=== PATIENT | female | born 1990 | race Caucasian/White ===

== ENCOUNTER 2017-08-26 10:12 | Inpatient (IN) ==
[~2017-08-26 10:12] MED LIST: GI Cocktail 40 ML EACH ONE
[2017-08-26] MEDS ORDERED: Ondansetron 4 MG/2 ML VIAL IVP ONE (10:50)
[2017-08-26] MEDS ORDERED: *HR* HYDROmorphone (PF) 1 MG/ML SYRINGE IVP ONE ×2 (10:50→12:55)
[2017-08-26] MEDS ORDERED: 0.9 % Sodium Chloride 1,000 ML IVC ONE (10:50)
[2017-08-26] MEDS ORDERED: Hyoscyamine 0.5 MG/ML MLS IVP ONE (10:51)
--- NOTE | 2017-08-26 10:54 | Emergency Department Note ---
Disposition Clinical Impression: Abdominal pain, Acute cholecystitis Disposition: Admitted As Inpatient Condition: Fair Time of Disposition: 13:02 Abdominal Pain HPI - General Chief Complaint: ED Abdominal Pain Stated Complaint: abd pain, seen at [facility] yesterday Time Seen by Provider: 08/26/17 10:21 Source: patient Mode of arrival: ambulatory Limitations: no limitations Nursing Notes Reviewed: Yes Vital Signs Reviewed: Yes - History of Present Illness HPI Narrative: 26-year-old female morbidly obese with known gallstones presents for evaluation of abdominal pain. Patient states that she has had worsening abdominal pain over the past 2 days. States she was seen at an outside ED was given pain medicine and was told to follow-up. States she has not been taking any of her pain medicine. States that she felt nauseous with episodes of emesis. Pain is diffuse throughout her abdomen. Patient denies any immediate postprandial component to it as she has not been eating. Patient denies any fevers. Denies any diarrhea or constipation. No vaginal bleeding or discharge. No dysuria or hematuria. No history of kidney stones. Denying any chest pain or shortness of breath. Pain of the abdomen is worse with direct palpation. Patient does state that she is currently being treated by a urinary tract infection on Bactrim. Pain Scale: 10 - Related Data Home Medications Medication Instructions Recorded Confirmed Sertraline [Zoloft] 50 mg PO DAILY 06/17/17 08/26/17 Cholecalciferol (D-3) [Vitamin D] 1,000 unit PO DAILY 08/26/17 08/26/17 Omeprazole [PriLOSEC] 20 mg PO DAILY 08/26/17 08/26/17 Previous Rx's Medication Instructions Recorded HYDROcodone/Acet 5/325 mg [[place] 1 tab PO Q6H #14 tab 08/25/17 5-325 mg] Sulfamethoxazole/Trimeth DS 1 each PO BID #20 tablet 08/25/17 [Bactrim DS] Allergies Allergy/AdvReac Type Severity Reaction Status Date / Time cephalexin [From Keflex] Allergy Swelling Verified 08/26/17 13:04 of Lip/Tongue/Throat egg Allergy Hives Verified 08/26/17 13:03 All systems ED: reviewed and negative except as stated. Constitutional: Reports: as per HPI. Denies: fever Eyes: Reports: as per HPI ENT ED: Reports: as per HPI Cardiovascular: Reports: as per HPI. Denies: chest pain Respiratory: Reports: as per HPI. Denies: dyspnea Gastrointestinal: Reports: as per HPI, abdominal pain, nausea, vomiting. Denies : diarrhea, constipation Genitourinary: Reports: as per HPI Musculoskeletal: Reports: as per HPI Integumentary: Reports: as per HPI Neurological: Reports: as per HPI Psychiatric: Reports: as per HPI Endocrine: Reports: as per HPI Hematological/Lymphatic: Reports: as per HPI Abdominal Pain PMH - Past Medical History Medical history: Reports: seizures, thyroid disease Female Surgical History: Reports: Adenoidectomy, , Tonsillectomy [employer] history: Reports: bilateral tubal ligation Psychiatric history: Reports: anxiety - Social History Smoking status: Current every day smoker Alcohol use: Reports: none Drug use: Reports: none Physical Exam - General Limitations: no limitations General appearance: alert, in distress, obese - Head Head exam: atraumatic, normocephalic, normal inspection - Eye Eye exam: Present: normal appearance, PERRL, EOMI - ENT ENT exam: normal exam, mucous membranes moist - Neck Neck exam: Present: normal inspection - Chest Chest inspection: Present: normal inspection, symmetric chest wall rise - Respiratory Respiratory exam: Present: normal lung sounds bilaterally. Absent: respiratory distress, prolonged expiratory phase - Cardiovascular Cardiovascular exam: Present: regular rate, normal rhythm - Abdominal Exam Abdominal exam: Present: soft, tenderness (Mild to moderate tenderness throughout. Voluntary guarding), normal bowel sounds. Absent: rebound - Extremities Exam Extremities exam: Present: normal inspection. Absent: pedal edema - Back Exam Back exam: Present: normal inspection - Neurological Exam Neurological exam: Present: alert, oriented X3 - Skin Skin exam: Present: warm, dry, intact, normal color Course Course Narrative: Patient seen and examined. Patient ambulatory the treatment area. Patient appears to be in moderate discomfort. Patient does have tender abdomen. The patient will get basic lab work including appropriate pain control and antiemetics. Patient ultimately require CT of the abdomen and pelvis. Disposition pending. - Reevaluation(s) Reevaluation #1: Patient had a bedside ultrasound performed which shows mobile gallstones with a distended GB. patients pain was improved after the IV pain medication. Time: 11:41 Reevaluation #2: Patient's updated on plan of care. Patient aware that she is going to be admitted. Time: 13:08 - Consultations Consultation #1: Soke with Dr. Rock who accepted the patient on the surgical service. Recommend to start Levaquin and Flagyl. May start clear diet. Time: 13:00 Vital Signs Temperature 98.1 F 08/26/17 10:33 Pulse Rate 88 08/26/17 10:33 Respiratory Rate 16 08/26/17 10:33 Blood Pressure 155/85 08/26/17 10:33 O2 Sat by Pulse Oximetry 100 08/26/17 10:33 Temperature 97.1 F L 08/26/17 13:51 Pulse Rate 106 08/26/17 13:51 Respiratory Rate 18 08/26/17 13:51 Blood Pressure 139/88 08/26/17 13:51 O2 Sat by Pulse Oximetry 99 08/26/17 13:51 Oxygen Delivery Oxygen Delivery Room Air Abdominal Pain - MDM Narrative Medical decision making narrative: 26-year-old morbidly obese female persists for evaluation of abdominal pain. Patient did have mild to moderate tenderness with palpation. Patient had a nonsurgical abdomen. Patient was seen at an outside ED yesterday. Patient was treated symptomatically. Patient does have known gallstones. Patient had a CT the abdomen and pelvis. Patient also had basic lab work including electrolytes and lipase. Patient's lipase is negative. Patient has no elevation in hepatic liver function. Patient did have a bedside ultrasound which showed distended GB with multiple Gall stones. Patient does have several mobile gallstones. Patient's CT scan shows signs consistent with acute cholecystitis. Patient's pain was controlled in the emergency department. Dr. Rock accepted the patient to his service. - Lab Data Lab results reviewed: Yes I reviewed the patient's lab results. Result diagrams: 08/26/17 11:06 08/26/17 11:06 Lab Results 08/26/17 08/26/17 08/26/17 Range/Units 11:06 11:06 11:06 WBC 12.8 H (4.3-11.1) K/mcL RBC 5.07 H (3.82-4.97) M/mcL Hgb 13.3 (11.5-15.4) g/dL Hct 42.2 (35.3-44.9) % MCV 83.2 (83.0-100.0) fL MCH 26.2 L (28.0-33.3) pg MCHC 31.5 L (31.6-35.5) g/dL RDW 14.6 H (11.5-14.5) % Plt Count 263 (140-400) K/mcL MPV 10.6 (9.4-12.4) fL Immature Gran % 0.5 (0-4) % Seg Neutrophils % 78.0 % Lymphocytes % 14.9 % Monocytes % 5.1 % Eosinophils % 1.2 % Basophils % 0.3 % Neutrophils # 10.0 H (1.6-8.9) K/mcL Lymphocytes # 1.9 (0.6-4.6) K/mcL Monocytes # 0.7 (0.0-1.3) K/mcL Eosinophils # 0.2 (0.0-0.6) K/mcL Basophils # 0.0 (0.0-0.2) K/mcL Sodium 136 (136-145) mEq/L Potassium 4.4 (3.5-5.1) mEq/L Chloride 106 (98-107) mEq/L Carbon Dioxide 25 (23-29) mEq/L BUN 13 (6-20) mg/dL Creatinine 0.66 (0.60-1.20) mg/dL Est GFR ( Amer) > 60 (> 60) Est GFR (Non-Af Amer) > 60 (> 60) BUN/Creatinine Ratio 20 (6-26) Glucose 99 (70-105) mg/dL Calculated Osmolality 282 (280-300) Lactic Acid 1.1 (0.5-2.2) mmol/L Calcium 9.1 (8.6-10.3) mg/dL Total Bilirubin 0.4 (0.3-1.0) mg/dL Direct Bilirubin 0.0 (0.0-0.2) mg/dL Indirect Bilirubin 0.4 (0.0-1.2) mg/dL AST 16 (13-39) Units/L ALT 26 (7-52) Units/L Alkaline Phosphatase 80 (34-104) Units/L Serum Total Protein 7.1 (6.4-8.9) g/dL Albumin 4.1 (3.5-5.7) g/dL Globulin 3.0 (2.4-3.5) g/dL Albumin/Globulin Ratio 1.4 (1.1-2.2) Lipase 11 (11-82) Units/L Urine Color (Yellow) Urine Clarity (Clear) Urine pH (5.0-8.0) pH Units Ur Specific [place] (1.010-1.025) Urine Protein (Neg-Trace) mg/dL Urine Glucose (UA) (Normal) mg/dL Urine Ketones (Negative) mg/dL Urine Blood (Negative) Urine Nitrite (Negative) Urine Bilirubin (Negative) Urine Urobilinogen (Normal) mg/dL Ur Leukocyte Esterase (Negative) Urine Microscopic RBC (0-3) per hpf Urine Microscopic WBC (0-3) per hpf Ur Squamous Epith Cells (None-Few) per lpf Urine Bacteria (None-Few) per hpf Hyaline Casts (None-Few) per lpf Ur Culture Indicated? (NO) Urine Test (Negative) 08/26/17 08/26/17 Range/Units 11:28 11:28 WBC (4.3-11.1) K/mcL RBC (3.82-4.97) M/mcL Hgb (11.5-15.4) g/dL Hct (35.3-44.9) % MCV (83.0-100.0) fL MCH (28.0-33.3) pg MCHC (31.6-35.5) g/dL RDW (11.5-14.5) % Plt Count (140-400) K/mcL MPV (9.4-12.4) fL Immature Gran % (0-4) % Seg Neutrophils % % Lymphocytes % % Monocytes % % Eosinophils % % Basophils % % Neutrophils # (1.6-8.9) K/mcL Lymphocytes # (0.6-4.6) K/mcL Monocytes # (0.0-1.3) K/mcL Eosinophils # (0.0-0.6) K/mcL Basophils # (0.0-0.2) K/mcL Sodium (136-145) mEq/L Potassium (3.5-5.1) mEq/L Chloride (98-107) mEq/L Carbon Dioxide (23-29) mEq/L BUN (6-20) mg/dL Creatinine (0.60-1.20) mg/dL Est GFR ( Amer) (> 60) Est GFR (Non-Af Amer) (> 60) BUN/Creatinine Ratio (6-26) Glucose (70-105) mg/dL Calculated Osmolality (280-300) Lactic Acid (0.5-2.2) mmol/L Calcium (8.6-10.3) mg/dL Total Bilirubin (0.3-1.0) mg/dL Direct Bilirubin (0.0-0.2) mg/dL Indirect Bilirubin (0.0-1.2) mg/dL AST (13-39) Units/L ALT (7-52) Units/L Alkaline Phosphatase (34-104) Units/L Serum Total Protein (6.4-8.9) g/dL Albumin (3.5-5.7) g/dL Globulin (2.4-3.5) g/dL Albumin/Globulin Ratio (1.1-2.2) Lipase (11-82) Units/L Urine Color Dark Yellow (Yellow) Urine Clarity Clear (Clear) Urine pH 6.0 (5.0-8.0) pH Units Ur Specific [place] > 1.030 H (1.010-1.025) Urine Protein Negative (Neg-Trace) mg/dL Urine Glucose (UA) Normal (Normal) mg/dL Urine Ketones Negative (Negative) mg/dL Urine Blood Negative (Negative) Urine Nitrite Negative (Negative) Urine Bilirubin Negative (Negative) Urine Urobilinogen Normal (Normal) mg/dL Ur Leukocyte Esterase Small H (Negative) Urine Microscopic RBC 0-3 (0-3) per hpf Urine Microscopic WBC 15-30 H (0-3) per hpf Ur Squamous Epith Cells Many H (None-Few) per lpf Urine Bacteria Few (None-Few) per hpf Hyaline Casts Few (None-Few) per lpf Ur Culture Indicated? NO (NO) Urine Test Negative (Negative) - Radiology Data Radiology results reviewed: Yes I reviewed the patient's radiology results. Abdomen/Pelvis CT 08/26/17 10:50 IMPRESSION: Gallbladder is distended and contains multiple gallstones. Several gallstones appear to be present within the region of the gallbladder neck. Study is limited without IV contrast, however, there does appear to be gallbladder wall thickening and pericholecystic fatty stranding concerning for cholecystitis. Further evaluation with right upper quadrant ultrasound is now recommended. This would allow for better evaluation of the gallbladder and common bile duct. Consider surgical consultation. Umbilical hernia contains fat. Surgical clips are present within the right pelvis. The left fallopian tube clip appears to have migrated into the right pelvis. D/ / Gopal Nunes MD / Gopal Nunes MD Interpreting Provider: Gopal Nunes MD Dennis - Dennis Situation: Demographics Background: Presenting Complaint Assessment: Vital Signs, Course and respsone to treatment, Patient/Family Expectation Recommendation: Barrier(s) to disposition, Recommendation based on pending studies, treatments, or consults Dennis Report Given to: Dr. Pranav Collins Repor Time: 13:00 Attestation Statement - Attestation Attestation: I examined this patient and my medical decision-making was reviewed with the Resident Physician. I agree with the documented findings, disposition and treatment plan as described except to the extent set forth below. Patient presents with abdominal pain. She admits that it is in the right upper quadrant. Started yesterday and she was actually seen yesterday at [place] emergency department. She had labs which were normal. She is diagnosed urinary tract infection and sent home. There is concern today about worsening pain and thus a CT scan was ordered. There is fat stranding around the gallbladder with concern for CT findings of acute cholecystitis. We are not able to get an ultrasound of the gallbladder without surgical services approval. Given the isolated nature of her pain to the right upper quadrant and CT findings of acute cholecystitis we did consult general surgery who proceeded with admission. I do have reduced suspicion for acute cholecystitis given normal transaminases as well as bilirubin however in the setting of leukocytosis this needs to be ruled out. She will need an ultrasound to formally rule out acute cholecystitis. Additionally she will need isolation of other possible causes of abdominal pain
[2017-08-26 11:16] LABS: Basophils % 0.3 %; Eosinophils # 0.2 K/mcL (0.0-0.6); Eosinophils % 1.2 %; Hematocrit 42.2 % (35.3-44.9); Hemoglobin 13.3 g/dL (11.5-15.4); Immature Granulocytes % 0.5 % (0-4); Lymphocytes # 1.9 K/mcL (0.6-4.6); Lymphocytes % 14.9 %; Mean Corpuscular HGB Conc 31.5 g/dL (31.6-35.5); Mean Corpuscular Hemoglobin 26.2 pg (28.0-33.3); Mean Corpuscular Volume 83.2 fL (83.0-100.0); Mean Platelet Volume 10.6 fL (9.4-12.4); Monocytes # 0.7 K/mcL (0.0-1.3); Monocytes % 5.1 %; Platelet Count 263 K/mcL (140-400); Red Blood Count 5.07 M/mcL (3.82-4.97); Red Cell Distribution Width 14.6 % (11.5-14.5)
[2017-08-26 11:31] LABS: Alanine Aminotransferase 26 Units/L (7-52); Albumin 4.1 g/dL (3.5-5.7); Albumin/Globulin Ratio 1.4 (1.1-2.2); Alkaline Phosphatase 80 Units/L (34-104); Aspartate Amino Transferase 16 Units/L (13-39); BUN/Creatinine Ratio 20 (6-26); Bilirubin,Indirect 0.4 mg/dL (0.0-1.2); Bilirubin,Total 0.4 mg/dL (0.3-1.0); Blood Urea Nitrogen 13 mg/dL (6-20); Calcium 9.1 mg/dL (8.6-10.3); Carbon Dioxide 25 mEq/L (23-29); Chloride 106 mEq/L (98-107); Glucose 99 mg/dL (70-105); Lipase 11 Units/L (11-82); Osmolality,Calculated 282 (280-300); Potassium 4.4 mEq/L (3.5-5.1); Sodium 136 mEq/L (136-145); Total Protein 7.1 g/dL (6.4-8.9); eGFR For African Americans > 60 (> 60); eGFR For Non-African Americans > 60 (> 60)
[2017-08-26 11:41] LABS: Bilirubin,Urine Negative (Negative); Blood,Urine Negative (Negative); Clarity,Urine Clear (Clear); Color,Urine Dark Yellow (Yellow); Glucose,Urine (UA) Normal (Normal); Ketones,Urine Negative (Negative); Leukocyte Esterase,Urine Small (Negative); Nitrite,Urine Negative (Negative); Protein,Urine Negative (Neg-Trace); Specific Gravity,Urine > 1.030 (1.010-1.025); Urobilinogen,Urine Normal (Normal)
[2017-08-26 11:43] LABS: Bacteria,Urine Few per hpf (None-Few); Hyaline Casts,Urine Few per lpf (None-Few); RBC,Urine 0-3 per hpf (0-3); Squamous Epithelial Cell,Urine Many per lpf (None-Few); WBC,Urine 15-30 per hpf (0-3)
[2017-08-26] MEDS ORDERED: Levofloxacin 750 MG/150 ML 750 MG/150 ML BAG IVPB ONE (13:05)
[2017-08-26] MEDS ORDERED: MetroNIDAZOLE 500 MG/100 ML 500 MG/100 ML BAG IVPB ONE (13:05)
[2017-08-26 13:52] LABS: INR 1.1; Prothrombin Time 11.4 Seconds (9.4-12.1)
[2017-08-26 13:54] LABS: Activated Partial Thrombo Time 32.5 Seconds (26.0-36.0)
[2017-08-26] MEDS ORDERED: Ondansetron 4 MG/2 ML VIAL IVP PRN (14:35)
[2017-08-26] MEDS ORDERED: Ketorolac 30 MG/ML VIAL IVP PRN (14:36)
[2017-08-26] MEDS: MetroNIDAZOLE 500 MG/100 ML 500 MG/100 ML BAG IVPB SCH (15:42)
[2017-08-26] MEDS: Nicotine 7 MG PATCH.TD24 TD SCH (15:42)
[2017-08-26] MEDS: 0.9 % Sodium Chloride 1,000 ML IVC SCH (15:42)
[2017-08-26] MEDS: *HR* HYDROmorphone (PF) 1 MG/ML SYRINGE IVP PRN ×3 (15:43→21:28)
--- NOTE | 2017-08-26 15:48 | General Surg History&Physical ---
Date of Encounter: 08/27/17 Time of Encounter: 15:46 Assessment and Plan (1) Left upper quadrant abdominal pain of unknown etiology Current Visit: Yes Status: Acute The assessment and plan as outlined above was discussed with the patient and/or family members who expressed understanding and agreement. All questions were answered. Spleen to the patient that I personally evaluated the CAT scan images and report. CT scan imaging report is mainly based upon what the suggested location of the patient's pain was which is why they focused on the questionable or possible pericholecystic fluid and possible fat stranding. The patient denies any right upper quadrant pain and is very tender left upper quadrant. There was no abnormality that I have seen by CT scan to find the cause of her abdominal pain. She does have gallstones present but the CAT scan is done without contrast to determine any other abnormality is noted to be performed. Additionally, the patient does not have any symptoms in that location. A formal gallbladder ultrasound can be considered but I think will be most appropriate to consider an EGD. I will write for Ananya to see if this will help some of her abdominal pain symptoms and we will consider an EGD within the next 24 hours. (2) UTI (urinary tract infection) Current Visit: Yes Status: Acute The assessment and plan as outlined above was discussed with the patient and/or family members who expressed understanding and agreement. All questions were answered. Noted by josiah. On Jesu. Qualifiers: Urinary tract infection type: site unspecified Hematuria presence: without hematuria Qualified Code(s): N39.0 - Urinary tract infection, site not specified History of Present Illness Chief complaint: Upper abdominal pain HPI: Ms. Muñoz is a 26 year old female past medical history significant for seizures states that she has been having left-sided abdominal pain with the past 2 months. Spontaneously abdominal pain is located she points the left upper quadrant near her left costal margin. She will he reported to me that her pain was in the right upper quadrant area but the patient denies having any right upper quadrant pain. He specifically denies any nausea or vomiting symptoms and states that the pain is a constant "squeezing" pain symptoms. I re-stated and asked several times for the patient to pinpoint and localize were pain symptoms and each time she pointed to the left upper quadrant and sometimes describe some mild discomfort to the left of the epigastric region. She denies ever having had an endoscopy procedure before. She had a CT scan of the abdomen and pelvis and also had an ultrasound performed by the emergency room resident concerning for thickening of the gallbladder and gallstones. Past Med Surg Social Fam HX - Past Medical History Medical history: seizures, thyroid disease Psychiatric history: anxiety - Past Surgical History Surgical History: , other - Social History Smoking Status: Current every day smoker Packs per day: 1 Smokeless Tobacco Status: No Alcohol use: none Drug use: none Medications and Allergies Sertraline [Zoloft] 50 mg PO DAILY 06/17/17 [History] HYDROcodone/Acet 5/325 mg [[place] 5-325 mg] 1 tab PO Q6H #14 tab 08/25/17 [Rx] Sulfamethoxazole/Trimeth DS [Bactrim DS] 1 each PO BID #20 tablet 08/25/17 [Rx] Cholecalciferol (D-3) [Vitamin D] 1,000 unit PO DAILY 08/26/17 [History] Omeprazole [PriLOSEC] 20 mg PO DAILY 08/26/17 [History] 3 Allergy/AdvReac Type Severity Reaction Status Date / Time cephalexin [From Keflex] Allergy Swelling Verified 08/26/17 13:04 of Lip/Tongue/Throat egg Allergy Hives Verified 08/26/17 13:03 Review of Systems All systems PM: reviewed and no additional remarkable complaints except as stated All systems PM: A 10-system review of systems was performed and is negative for pertinent findings except as documented above in the HPI. General Surgery Exam Initial Vital Signs Temp Pulse Resp BP Pulse Ox 98.1 F 88 16 155/85 100 08/26/17 10:33 08/26/17 10:33 08/26/17 10:33 08/26/17 10:33 08/26/17 10:33 - Eyes PERRL, normal ocular movement - Respiratory normal expansion, normal respiratory effort - Cardiovascular Cardiovascular exam: Present: RRR, no murmurs/rubs/gallops - Abdomen Abdomen general surgery: Present: bowel sounds present, soft (Obese), tender ( Pain mainly in the LUQ to mild palpation. Mild epigastric pain. No RUQ pain present. No masses. No hernias noted.) - Musculoskeletal Present: other (No clubbing, cyanosis, or edema) Results - Labs 08/27/17 09:10 08/27/17 09:10 Abnormal lab results WBC 12.8 K/mcL (4.3-11.1) H 08/26/17 11:06 RBC 5.07 M/mcL (3.82-4.97) H 08/26/17 11:06 MCH 26.2 pg (28.0-33.3) L 08/26/17 11:06 MCHC 31.5 g/dL (31.6-35.5) L 08/26/17 11:06 RDW 14.6 % (11.5-14.5) H 08/26/17 11:06 Neutrophils # 10.0 K/mcL (1.6-8.9) H 08/26/17 11:06 Ur Specific [place] > 1.030 (1.010-1.025) H 08/26/17 11:28 Ur Leukocyte Esterase Small (Negative) H 08/26/17 11:28 Urine Microscopic WBC 15-30 per hpf (0-3) H 08/26/17 11:28 Ur Squamous Epith Cells Many per lpf (None-Few) H 08/26/17 11:28 All other labs normal. - Imaging CT scan - abdomen: report reviewed, image reviewed (Images and report reviewed by me. There is a question of mild fat stranding around the gallbladder and perhaps. Cholecystic fluid and gallstones with CAT scan is done without contrast.)
[2017-08-26] MEDS: *HR* Heparin 5,000 UNIT/ML VIAL SQ SCH (16:35)
[2017-08-26] MEDS: Sucralfate 1 GM TABLET PO SCH ×2 (16:36→21:10)
[2017-08-27] MEDS: MetroNIDAZOLE 500 MG/100 ML 500 MG/100 ML BAG IVPB SCH ×4 (00:05→23:10)
[2017-08-27] MEDS: *HR* HYDROmorphone (PF) 1 MG/ML SYRINGE IVP PRN ×7 (00:05→23:05)
[2017-08-27] MEDS: *HR* Heparin 5,000 UNIT/ML VIAL SQ SCH ×2 (05:39→17:48)
[2017-08-27] MEDS: 0.9 % Sodium Chloride 1,000 ML IVC SCH (08:17)
[2017-08-27] MEDS: Nicotine 7 MG PATCH.TD24 TD SCH (08:19)
[2017-08-27] MEDS ORDERED: Levofloxacin 500 MG/100 ML 500 MG/100 ML BAG IVPB SCH (09:00)
[2017-08-27] MEDS ORDERED: Pantoprazole 40 MG VIAL IVP SCH (09:00)
[2017-08-27] MEDS ORDERED: Cholecalciferol (D-3) 1,000 UNIT TABLET PO SCH (09:00)
[2017-08-27 09:19] LABS: Basophils % 0.2 %; Eosinophils # 0.3 K/mcL (0.0-0.6); Eosinophils % 2.4 %; Hematocrit 38.9 % (35.3-44.9); Hemoglobin 12.1 g/dL (11.5-15.4); Immature Granulocytes % 0.7 % (0-4); Lymphocytes # 2.1 K/mcL (0.6-4.6); Lymphocytes % 19.2 %; Mean Corpuscular HGB Conc 31.1 g/dL (31.6-35.5); Mean Corpuscular Hemoglobin 26.2 pg (28.0-33.3); Mean Corpuscular Volume 84.2 fL (83.0-100.0); Mean Platelet Volume 10.3 fL (9.4-12.4); Monocytes # 0.8 K/mcL (0.0-1.3); Monocytes % 7.3 %; Neutrophils # 7.7 K/mcL (1.6-8.9); Platelet Count 229 K/mcL (140-400); Red Blood Count 4.62 M/mcL (3.82-4.97); Red Cell Distribution Width 14.6 % (11.5-14.5); Segmented Neutrophils % 70.2 %
--- NOTE | 2017-08-27 09:24 | General Surgery Progress Note ---
<Gaviota Barber - Last Filed: 08/27/17 10:12> Date of Encounter: 08/27/17 Time of Encounter: 08:50 - Assessment and Plan (1) Abdominal pain Current Visit: Yes Status: Acute Positive [place] sign. Patient also tender on the left side with palpation. Again she states that her discomfort is on the right but when asked to point to the area she points to the left. She is noted to be febrile. Tmax 100F at 11: 46 PM 08/26/2017. Her white blood cell count has normalized (10.9), LFTs, lipase, and bili are normal. Plan: NPO Upper Abd US today EGD today (recommendations, risks, and benefits reviewed with the patient. She is agreeable to proceed. Signed consent is on the hard chart) further recommendations pending. Qualifiers: Abdominal location: upper abdomen, unspecified Qualified Code(s): R10.10 - Upper abdominal pain, unspecified (2) UTI (urinary tract infection) Current Visit: Yes Status: Acute Management per primary medicine. Noted Levaquin infusion. Qualifiers: Urinary tract infection type: site unspecified Hematuria presence: without hematuria Qualified Code(s): N39.0 - Urinary tract infection, site not specified Subjective Patient reports: still having pain, pain is less, voiding w/o difficulty, no flatus, no bowel movement, nausea, fever Narrative: Jenifer reports upper abdominal pain. She states the pain is on her right side but when asked to point to the location, she points to the left. She states the pain is different than yesterday that it is more localized to the right side. She reports mild nausea associated. She reports fevers yesterday. She denies vomiting, diarrhea, constipation, or feelings of heartburn. Objective Vital Signs - Last 8 Hours Temp Pulse Resp BP Pulse Ox 08/27/17 05:13 98.7 F 114 14 115/69 95 Intake and Output 08/26/17 08/27/17 08/27/17 23:59 07:59 15:59 Intake Total 1060 / 1060 1100 / 1100 Output Total 0 / 0 0 / 0 Balance 1060 / 1060 1100 / 1100 Intake: IV Fluids 100 / 100 1100 / 1100 0.9 % Sodium Chloride 1,000 ML 1000 / 1000 @ 80 mls/hr IVC .[id number] [facility]AL Rx #:[id number] Flagyl Premix 500 MG/100 ML 500 100 / 100 100 / 100 mg In 100 ml @ 100 mls/hr IVPB Q8HR GAL Rx#:[id number] Oral 960 / 960 0 / 0 Output: Urine 0 / 0 0 / 0 Other: Meal Dinner NPO # Bowel Movements 0 Blood Glucose* 104 - General physical appearance no distress, no pain, obese - Eyes normal ocular movement - ENT atraumatic, normocephalic - Neck Neck exam: trachea midline, no venous distension - Respiratory normal respiratory effort, clear to auscultation - Cardiovascular Cardiovascular exam: Present: RRR, distant heart sounds - Abdomen Abdomen: Present: bowel sounds present, soft, tender Abdominal Tenderness: RUQ (+ [place] sign), LUQ Hernia: none - Integumentary no growths - Neurologic normal coordination, normal sensation - Musculoskeletal normal posture - Psychiatric oriented to time, oriented to person, oriented to place, speech is normal, memory intact - Labs 08/27/17 09:10 08/27/17 09:10 Consult Discharge Plan - Plan Referrals: Monico Guzmán, [employer] [Primary Care Provider] - <Amos Rock - Last Filed: 08/28/17 14:42> Date of Encounter: 08/27/17 - Assessment and Plan (1) Left upper quadrant abdominal pain of unknown etiology Current Visit: Yes Status: Acute (2) UTI (urinary tract infection) Current Visit: Yes Status: Acute Qualifiers: Urinary tract infection type: site unspecified Hematuria presence: without hematuria Qualified Code(s): N39.0 - Urinary tract infection, site not specified Objective Vital Signs - Last 8 Hours Temp Pulse Resp BP Pulse Ox 08/28/17 10:18 99.2 F 97 14 100/63 94 08/28/17 08:17 94 08/28/17 06:49 97.4 F L 91 14 99/51 96 Intake and Output 08/27/17 08/28/17 08/28/17 23:59 07:59 15:59 Intake Total 460 / 460 0 / 0 0 / 0 Output Total 800 / 800 0 / 0 500 / 500 Balance -340 / -340 0 / 0 -500 / -500 Intake: IV Fluids 100 / 100 Flagyl Premix 500 MG/100 ML 500 100 / 100 mg In 100 ml @ 100 mls/hr IVPB Q8HR GAL Rx#:[id number] Oral 360 / 360 0 / 0 0 / 0 Output: Urine 800 / 800 0 / 0 500 / 500 Other: Meal Clears NPO Percent of Meal Consumed 0% Weight 147.148 kg Blood Glucose* 82 Patient Weight 08/28/17 23:59 Weight 147.148 kg - Labs 08/27/17 09:10 08/27/17 09:10 - Attending Attestation I have personally performed a face to face evaluation on this patient. I have reviewed and agree with the care plan. History and Exam by me shows: I reviewed the above assessment and evaluation and agree with the above plan. For EGD today. To consider add-on Lap CCY for 08/28/17.
[2017-08-27 09:34] LABS: Alanine Aminotransferase 21 Units/L (7-52); Albumin 3.5 g/dL (3.5-5.7); Albumin/Globulin Ratio 1.3 (1.1-2.2); Alkaline Phosphatase 70 Units/L (34-104); Aspartate Amino Transferase 13 Units/L (13-39); BUN/Creatinine Ratio 12 (6-26); Bilirubin,Direct 0.2 mg/dL (0.0-0.2); Bilirubin,Indirect 0.7 mg/dL (0.0-1.2); Bilirubin,Total 0.9 mg/dL (0.3-1.0); Blood Urea Nitrogen 7 mg/dL (6-20); Calcium 8.8 mg/dL (8.6-10.3); Carbon Dioxide 26 mEq/L (23-29); Chloride 108 mEq/L (98-107); Globulin 2.7 g/dL (2.4-3.5); Glucose 97 mg/dL (70-105); Osmolality,Calculated 282 (280-300); Potassium 4.2 mEq/L (3.5-5.1); Sodium 137 mEq/L (136-145); Total Protein 6.2 g/dL (6.4-8.9); eGFR For African Americans > 60 (> 60); eGFR For Non-African Americans > 60 (> 60)
[2017-08-27] MEDS: Sucralfate 1 GM TABLET PO SCH ×4 (10:27→21:31)
[2017-08-27] MEDS ORDERED: *HR* FentaNYL (PF) 100 MCG/2 ML VIAL ONE ×2 (14:43→14:57)
[2017-08-27] MEDS: *HR* Midazolam HCl 5 MG/5 ML VIAL IVP ONE ×2 (14:54→14:56)
[2017-08-27] MEDS ORDERED: *HR* Midazolam HCl 5 MG/5 ML VIAL IVP ONE (14:57)
--- NOTE | 2017-08-27 15:13 | Pre-Sedation Evaluation ---
Pre-sedation evaluation - Pre-sedation checklist Recent Vitals: Last Vital Signs Temp 98.8 F 08/27/17 14:28 Pulse 125 08/27/17 15:08 Resp 12 08/27/17 15:08 BP 90/56 08/27/17 15:08 Pulse Ox 98 08/27/17 15:08 Airway Assessment: Patient can open mouth completely, TMJ function normal Possible difficult airway: No ASA Classification *see protocol: CLASS III-Severe systemic disease Plan of Care: Pt appropriate candidate for procedure/moderate/conscious sedation
[2017-08-27] MEDS ORDERED: Ondansetron 4 MG/2 ML VIAL IVP PRN (15:55)
[2017-08-28] MEDS: *HR* HYDROmorphone (PF) 1 MG/ML SYRINGE IVP PRN ×6 (03:21→22:18)
[2017-08-28] MEDS: 0.9 % Sodium Chloride 1,000 ML IVC SCH ×2 (05:37→06:49)
[2017-08-28] MEDS: *HR* Heparin 5,000 UNIT/ML VIAL SQ SCH (05:38)
[2017-08-28] MEDS: Sucralfate 1 GM TABLET PO SCH ×3 (05:40→20:07)
[2017-08-28] MEDS ORDERED: Pantoprazole 40 MG VIAL IVP SCH (09:00)
[2017-08-28] MEDS ORDERED: Nicotine 7 MG PATCH.TD24 TD SCH (09:00)
[2017-08-28] MEDS ORDERED: Cholecalciferol (D-3) 1,000 UNIT TABLET PO SCH (09:00)
[2017-08-28] MEDS ORDERED: Levofloxacin 500 MG/100 ML 500 MG/100 ML BAG IVPB SCH (09:00)
[2017-08-28] MEDS: MetroNIDAZOLE 500 MG/100 ML 500 MG/100 ML BAG IVPB SCH (09:11)
--- NOTE | 2017-08-28 14:02 | Anesthesia Evaluation PreOp ---
Date of Encounter: 08/28/17 Time of Encounter: 14:00 - Past History Planned Operation: Lap cholecystectomy Cardiac History: Denies any Significant Hx Pulmonary History: Smoker CHORUS DANCER History: Denies Any Significant HX Other Medical History: GERD (poorly controlled), Other (BMI 45) Anesthesia History: No Prior Anesthetic Complications, Past Anesthesia (T&A, C- S and tubal under spinal) Alcohol Use: none Drug use: none Medications and Allergies Sertraline [Zoloft] 50 mg PO DAILY 06/17/17 [History] HYDROcodone/Acet 5/325 mg [[place] 5-325 mg] 1 tab PO Q6H #14 tab 08/25/17 [Rx] Sulfamethoxazole/Trimeth DS [Bactrim DS] 1 each PO BID #20 tablet 08/25/17 [Rx] Cholecalciferol (D-3) [Vitamin D] 1,000 unit PO DAILY 08/26/17 [History] Omeprazole [PriLOSEC] 20 mg PO DAILY 08/26/17 [History] 3 Allergy/AdvReac Type Severity Reaction Status Date / Time cephalexin [From Keflex] Allergy Swelling Verified 08/26/17 13:04 of Lip/Tongue/Throat egg Allergy Hives Verified 08/26/17 13:03 - Meds/Allergy Pre-op Review Medications Reviewed: Yes Allergies Reviewed: Yes Beta Blockers on Current Med List: No Anesthesia Results - Labs 08/27/17 09:10 08/27/17 09:10 Anesthesia Exam Last Vital Signs Temp 99.2 F 08/28/17 10:18 Pulse 97 08/28/17 10:18 Resp 14 08/28/17 10:18 BP 100/63 08/28/17 10:18 Pulse Ox 94 08/28/17 10:18 Weight: 147 kg NPO (# of Hours): > 8 hrs - HEENT Pupil (Motor): Pupils equal, EOMI Mallampati: III Teeth: Normal Oral Opening: Greater than 3 - CHORUS DANCER LOC: Oriented CHORUS DANCER Motor: Normal RUE, Normal LUE, Normal RLE, Normal LLE, Normal Face - Cardiac Rhythm: Regular Murmur: None - Pulmonary Breath Sounds: bilateral Clear Respiratory Effort: Symmetrical Anesthesia Assess/Plan ASA Score: 3 Modified [place] Scale for Level of Consciousness: Cooperative, oriented, and tranquil Anesthetic Plan: General Monitoring Plan: Standard Monitors Recovery Plan: PACU
[2017-08-28] MEDS ORDERED: *HR* Rocuronium Bromide 50 MG/5 ML VIAL ONE ×2 (14:07→16:31)
[2017-08-28] MEDS ORDERED: Neostigmine Methylsulfate 3 MG/3 ML SYRINGE ONE (14:07)
[2017-08-28] MEDS ORDERED: Dexamethasone 4 MG/ML VIAL ONE (14:07)
[2017-08-28] MEDS ORDERED: Lidocaine -MPF 2% 2 ML VIAL ONE (14:07)
[2017-08-28] MEDS ORDERED: *HR* Succinylcholine 200 MG/10 ML VIAL IVP ONE ×2 (14:07→14:19)
[2017-08-28] MEDS ORDERED: Lidocaine -MPF 4% 5 ML AMPUL ONE (14:07)
[2017-08-28] MEDS ORDERED: *HR* FentaNYL (PF) 100 MCG/2 ML VIAL ONE ×2 (14:07→16:02)
[2017-08-28] MEDS ORDERED: *HR* Midazolam HCl 2 MG/2 ML VIAL ONE (14:07)
[2017-08-28] MEDS ORDERED: Ondansetron 4 MG/2 ML VIAL ONE (14:07)
[2017-08-28] MEDS ORDERED: *HR* Propofol 200 MG/20 ML VIAL IVP ONE ×2 (14:08→14:57)
[2017-08-28] MEDS ORDERED: *HR* Etomidate 40 MG/20 ML VIAL IVP ONE (14:12)
[2017-08-28] MEDS ORDERED: *HR* Phenylephrine 10 MG/ML VIAL ONE (14:43)
[2017-08-28] MEDS ORDERED: *HR* HYDROmorphone 2 MG/ML SYRINGE ONE ×2 (15:16→16:05)
[2017-08-28] MEDS ORDERED: *HR* Promethazine 25 MG/ML VIAL IVP PRN (15:18)
[2017-08-28] MEDS ORDERED: *HR* HYDROmorphone (PF) 1 MG/ML SYRINGE IVP PRN (15:18)
[2017-08-28] MEDS ORDERED: Albuterol 2.5 MG/3 ML NEBULIZER IH ONE (15:18)
[2017-08-28] MEDS ORDERED: Ketorolac 30 MG/ML VIAL ONE (17:06)
[2017-08-28] MEDS ORDERED: Esmolol 100 MG/10 ML VIAL IVP ONE (17:09)
--- NOTE | 2017-08-28 17:31 | Operative Note ---
Date of procedure: 08/28/17 Pre-op diagnosis: Acute cholecystitis Post-op diagnosis: same Procedure: Laparoscopic cholecystectomy (additional time 90 min) Implants: 15 FR Hebert x 1 Anesthesia: HOLAA Surgeon: Amos Rock Was there an assistant finance director present: Yes Almond Blancher Hand: Tracee Miranda Estimated blood loss (cc): 150 Specimen: gallbladder and contents Condition: stable Disposition: PACU Procedure in Detail: Date of surgery: 08/28/17 After properly identifying the patient, the patient was brought to the operating room and placed supine position. After proper IV sedation was achieved followed by general endotracheal intubation, the patient's abdomen was prepped and draped in a normal sterile fashion. A subumbilical incision was made with an 11 blade scalpel down to the rectus fascia. There was a small umbilical defect which was incised and opened and a 12 mm port was placed through the incision/opening. A laparoscopic camera was placed through the port which showed no injury to the intra-abdominal organs upon entry. A 5 mm port and a right subcostal margin 5 mm port were then placed under direct camera visualization. The gallbladder was noted to be distended and tense and after the patient was placed in a reverse Trendelenburg position a laparoscopic needle decompression device was used to remove approximately 120 mL of bilious fluid from the gallbladder. This did allow for grasping of the gallbladder with a nontraumatic grasper and retraction superiorly. There were some omental adhesions were carefully dissected off the infundibulum with Bovie cautery and blunt dissection. It was difficult to identify or determine the location of the infundibulum and cystic duct due to the dilated and enlarged erythematous appearance of the gallbladder which was distended and consistent with acute cholecystitis. Attempts at medial and lateral dissection in the region of the infundibulum was performed. There were enlarged lymphatics that were clipped with laparoscopic clips and incised with laparoscopic scissors. After an inability to further identify the region of the infundibulum the decision was made to perform a top-down dissection by dissecting between the dome of the gallbladder and the liver. This was performed with Bovie cauterization which was also used to maintain hemostasis. Further dissection was performed with a combination of Bovie cauterization and retraction to allow for further visualization of the midportion of the dome of the gallbladder down towards the infundibulum. Hemostasis had to be maintained with constant suctioning and also eventual placement of Surgicel within the abdomen along the gallbladder fossa. Total additional time for the dissection surgical procedure was 90 minutes. Once the infundibulum could be identified by the top-down dissection the decision was made to consider for isolation of the cystic duct. The gallbladder was iatrogenically opened during the dissection phase with minimal spillage of stones which were easily identified and removed. Additionally the location of the cystic artery was difficult to determine but was otherwise identified and a combination of Bovie cautery and placement of clips were used to maintain hemostasis. The infundibulium/cystic duct was transected with a laparoscopic COREY stapler (prior to this maneuver an additional right upper quadrant 5 mm port was placed under direct camera visualization and the subxiphoid port was exchanged for a 12 mm port). Reinspection of the right upper quadrant was then warmed with copious irrigation of the right upper quadrant. A 15-German Hebert drain was placed in the abdomen at the level of the fossa and extruded through one of the 5 mm ports. This was secured in place with a 2-0 nylon suture. The abdomen was desufflated and all ports are then subsequently removed. The rectus fascia for the supraumbilical incision was reapproximated with a [id number] 0 Vicryl suture. The subcutaneous tissue was reapproximated with 3-0 Vicryl sutures and all remaining incisions were closed with 4-0 Monocryl sutures. Needle, sponge, and instrument counts were correct 2 and the incisions were covered with sutures and Band-Aids. The patient was aroused from IV sedation, extubated in the operating room without complication, and transported to the recovery room in stable condition.
[2017-08-28] MEDS ORDERED: Ringers Solution, Lactated 1,000 ML ONE (18:05)
--- NOTE | 2017-08-28 18:54 | Anesthesia Evaluation Post Op ---
Date of Encounter: 08/28/17 Time of Encounter: 18:54 - Vital Signs Vital Signs: Last Vital Signs Temp 97.8 F 08/28/17 18:42 Pulse 110 08/28/17 18:42 Resp 25 08/28/17 18:42 BP 130/62 08/28/17 18:42 Pulse Ox 96 08/28/17 18:42 - Lungs Lungs: Clear Ascult./Percussion - Airway Airway: Non-obstructed - Cardiovascular Regular Rate - Mental Status Mental Status: Alert & Oriented, Answers Appropriately - Pain Pain Scale: 4 - Nausea Vomiting Nausea Vomiting: Not Present - Hydration Hydration: NPO - Discharge PostOp Status: Transfer Patient to floor
[2017-08-28] MEDS ORDERED: 0.9 % Sodium Chloride 1,000 ML IVC SCH (19:16)
[2017-08-28] MEDS ORDERED: Ondansetron 4 MG/2 ML VIAL IVP PRN (19:16)
[2017-08-29] MEDS: MetroNIDAZOLE 500 MG/100 ML 500 MG/100 ML BAG IVPB SCH ×3 (00:32→07:51)
[2017-08-29] MEDS: *HR* HYDROmorphone (PF) 1 MG/ML SYRINGE IVP PRN ×4 (00:35→10:59)
[2017-08-29 06:40] VITALS: BP 125/76
[2017-08-29] MEDS: *HR* Heparin 5,000 UNIT/ML VIAL SQ SCH (06:49)
[2017-08-29] MEDS: Sucralfate 1 GM TABLET PO SCH ×2 (06:49→07:50)
[2017-08-29] MEDS: 0.9 % Sodium Chloride 1,000 ML IVC SCH ×2 (06:49→06:59)
[2017-08-29 08:10] LABS: Basophils % 0.1 %; Eosinophils % 0.1 %; Hematocrit 33.1 % (35.3-44.9); Immature Granulocytes % 0.6 % (0-4); Lymphocytes # 0.9 K/mcL (0.6-4.6); Lymphocytes % 8.2 %; Mean Corpuscular HGB Conc 30.8 g/dL (31.6-35.5); Mean Corpuscular Hemoglobin 25.8 pg (28.0-33.3); Mean Corpuscular Volume 83.6 fL (83.0-100.0); Mean Platelet Volume 10.7 fL (9.4-12.4); Monocytes # 0.6 K/mcL (0.0-1.3); Monocytes % 5.5 %; Neutrophils # 9.3 K/mcL (1.6-8.9); Platelet Count 238 K/mcL (140-400); Red Blood Count 3.96 M/mcL (3.82-4.97); Red Cell Distribution Width 14.4 % (11.5-14.5); Segmented Neutrophils % 85.5 %
[2017-08-29 08:30] LABS: BUN/Creatinine Ratio 16 (6-26); Blood Urea Nitrogen 9 mg/dL (6-20); Calcium 8.6 mg/dL (8.6-10.3); Carbon Dioxide 25 mEq/L (23-29); Chloride 110 mEq/L (98-107); Glucose 117 mg/dL (70-105); Osmolality,Calculated 286 (280-300); Potassium 4.3 mEq/L (3.5-5.1); Sodium 138 mEq/L (136-145); eGFR For African Americans > 60 (> 60); eGFR For Non-African Americans > 60 (> 60)
[2017-08-29 08:34] LABS: Hemoglobin 10.2 g/dL (11.5-15.4)
[2017-08-29] MEDS ORDERED: Nicotine 7 MG PATCH.TD24 TD SCH (09:00)
[2017-08-29] MEDS ORDERED: Pantoprazole 40 MG VIAL IVP SCH (09:00)
[2017-08-29] MEDS ORDERED: Cholecalciferol (D-3) 1,000 UNIT TABLET PO SCH (09:00)
[2017-08-29] MEDS ORDERED: Levofloxacin 500 MG/100 ML 500 MG/100 ML BAG IVPB SCH (09:00)
--- NOTE | 2017-08-29 09:32 | Discharge Summary ---
Date of Encounter: 08/29/17 Time of Encounter: 09:30 - Discharge Diagnosis (1) Acute cholecystitis Priority: Primary Status: Acute (2) Status post laparoscopic cholecystectomy Priority: Secondary Status: Acute (3) UTI (urinary tract infection) Priority: Secondary Status: Acute Qualifiers: Urinary tract infection type: site unspecified Hematuria presence: without hematuria Qualified Code(s): N39.0 - Urinary tract infection, site not specified - Discharge Medications Prescriptions: Ondansetron ODT [Zofran ODT] 4 mg SL Q6HR #15 tab.rapdis OxyCODONE/APAP 5/325 [Percocet 5/325 MG] 1 each PO Q6HR PRN #28 tablet PRN Reason: Pain Amoxicillin 250 mg PO Q8HR #30 capsule Ibuprofen [Motrin] 800 mg PO Q8HR #42 tablet Docusate [Colace] 100 mg PO BID #30 capsule Nicotine Patch [Nicoderm] 7 mg TD DAILY #30 patch.td24 Home Medications: Sertraline [Zoloft] 50 mg PO DAILY 06/17/17 [History] Cholecalciferol (D-3) [Vitamin D] 1,000 unit PO DAILY 08/26/17 [History] Omeprazole [PriLOSEC] 20 mg PO DAILY 08/26/17 [History] Amoxicillin 250 mg PO Q8HR #30 capsule 08/29/17 [Rx] Docusate [Colace] 100 mg PO BID #30 capsule 08/29/17 [Rx] Ibuprofen [Motrin] 800 mg PO Q8HR #42 tablet 08/29/17 [Rx] Nicotine Patch [Nicoderm] 7 mg TD DAILY #30 patch.td24 08/29/17 [Rx] Ondansetron ODT [Zofran ODT] 4 mg SL Q6HR #15 tab.rapdis 08/29/17 [Rx] OxyCODONE/APAP 5/325 [Percocet 5/325 MG] 1 each PO Q6HR PRN #28 tablet 08/29/17 [Rx] Allergies/Adverse Reactions: 3 Allergy/AdvReac Type Severity Reaction Status Date / Time cephalexin [From Keflex] Allergy Swelling Verified 08/26/17 13:04 of Lip/Tongue/Throat egg Allergy Hives Verified 08/26/17 13:03 General Surgery Exam Initial Vital Signs Temp Pulse Resp BP Pulse Ox 98.1 F 88 16 155/85 100 08/26/17 10:33 08/26/17 10:33 08/26/17 10:33 08/26/17 10:33 08/26/17 10:33 - General physical appearance well developed, well nourished, no distress, obese - Eyes normal ocular movement - ENT normal mucosa, no hearing loss, no congestion - Neck no masses, no bruits - Respiratory normal expansion, normal respiratory effort, clear to percussion, clear to auscultation - Cardiovascular Cardiovascular exam: Present: RRR, 15, 16 - Abdomen Abdomen general surgery: Present: bowel sounds present, soft, non tender - Incision Incision: Present: clean and dry (one midline and two bilateral abdominal incision sites. BRIAN drain on right.), intact - Integumentary Integumentary general surgery: Present: warm and dry, no abnormal pigmentation - Neurologic Present: CN 2-12 grossly intact, normal coordination, normal sensation - Musculoskeletal Present: normal gait, normal posture - Psychiatric Psychiatric general surgery: Present: appropriate, oriented to person, oriented to place, oriented to time, speech is normal, memory intact Date of admission: 08/28/17 14:05 Primary care physician: Monico Guzmán CNP Discharging clinician: Alex Reeves Anticipated date of discharge: 08/29/17 - Patient Status Disposition: Home, Self-Care Condition: Fair Functional capacity at discharge: independent ambulation Overall status at discharge: patient is progressing back to baseline - Discharge Instructions Follow Up With: Monico Guzmán CNP [Primary Care Provider] - Gaviota Barber CNP [Advanced Practice Nurse] - 09/06/17 11:20 am Additional Instructions: Do not let the BRIAN Dangle from your body-keep it secured to your shirt with a safety pin. Do not let the BRIAN dangle when you shower. Secure it to a necklace or lanyard. Record the output on the drain record provided and bring the record to your follow-up appointment. - Diet and Activity Activity: increase activity as tolerated Diet: advance to your usual diet - Hospital Course Hospital course: Ms. Muñoz is a 26 year old female w/ pmh of morbid obesity presented to [facility] ED on 08/26/2017 with a 2 day history of abdominal pain. On presentation to ED, she was also noted to treatment of UTI with Bactrim. Patient had positive [place]'s, temp of 100F, RUQ pain. WBC, LFT, lipase and bili were WNL. She was further worked up with a CT abd/pelvis - Gallbladder is distended and contains multiple gallstones, RUQ U/S - Cholelithiases in the distended gallbladder with mild gallbladder wall thickening favoring acute cholecystitis, and EGD - LA grade C acute esophagitis. Patient was then determined to have Acute Cholecystitis, and laparoscopic cholecysectomy was performed on 08/28/2017. Patient was put on CPAP post surgery due to difficulty waking from sedation, and switched to NC. On Post-op Day 1 patient removed her NC, and walked. Her SpO2 remained 91-95%. Patient reported pressure pain at her incision sites when she urinated and while getting up. Patient tolerated food, walked, urinated, and flatulent. Patient was encouraged to continue smoking cessation on discharge. Patient was also recommended to continue her bactrim that she was prescribed prior to admission for treatment of her UTI. Patient was discharged with oxycodone/acetaminophen 5 /325 mg 1 tab Q6 hours PRN for breakthrough pain #28, ibuprofen 800 mg PO Q8 hours #42, Colace 100 mg BID (take while on narcotics; may hold for loose stool ) #30, Zofran ODT 4 mg Q6H PRN for nausea #15, and Amoxicillin 250 mg Q8HR for 10 days #30 for BRIAN drainage. Patient has follow up appointment with Surgery on 09/06/2017 at 11:20 with Gaviota Barber NP. Patient was given BRIAN drainage instructions: Do not let the BRIAN Dangle from your body-keep it secured to your shirt with a safety pin. Do not let the BRIAN dangle when you shower. Secure it to a necklace or lanyard. Record the output on the drain record provided and bring the record to your follow-up appointment. Time spent discussing smoking cessation with patient: more than 10 minutes - Time Spent with Patient Total time spent providing and/or coordinating discharge services: Greater than 30 minutes Labs on day of discharge: Labs from last 24 hours 08/29/17 08/29/17 08:04 08:04 WBC 10.9 RBC 3.96 Hgb 10.2 L D Hct 33.1 L MCV 83.6 MCH 25.8 L MCHC 30.8 L RDW 14.4 Plt Count 238 MPV 10.7 Immature Gran % 0.6 Seg Neutrophils % 85.5 Lymphocytes % 8.2 Monocytes % 5.5 Eosinophils % 0.1 Basophils % 0.1 Neutrophils # 9.3 H Lymphocytes # 0.9 Monocytes # 0.6 Eosinophils # 0.0 Basophils # 0.0 Sodium 138 Potassium 4.3 Chloride 110 H Carbon Dioxide 25 BUN 9 Creatinine 0.58 L Est GFR ( Amer) > 60 Est GFR (Non-Af Amer) > 60 BUN/Creatinine Ratio 16 Glucose 117 H Calculated Osmolality 286 Calcium 8.6
[2017-08-29] MEDS ORDERED: *HR* Heparin 5,000 UNIT/ML VIAL SQ SCH (18:00)
== END 2017-08-29 12:20 | disposition home or self-care (01) | DRG 263 ==
LOC: 3ANU 10:12 → EMEROO 10:12 → 3ANU 13:32
PROVIDERS: ADMIT Surgery; ATTEND Surgery
PROC: ENDOEBX (2017-08-27 15:30)

== ENCOUNTER 2018-01-15 11:37 | Observation (INO) ==
[2018-01-15] MEDS ORDERED: 0.9 % Sodium Chloride 1,000 ML IVC ONE (11:59)
[2018-01-15] MEDS ORDERED: Ondansetron 4 MG/2 ML VIAL IVP ONE (11:59)
[2018-01-15] MEDS ORDERED: GI Cocktail 40 ML EACH PO ONE (11:59)
[2018-01-15] MEDS ORDERED: Hyoscyamine 0.5 MG/ML MLS IVP ONE (12:00)
--- NOTE | 2018-01-15 12:00 | Emergency Department Note ---
Disposition Clinical Impression: Abdominal pain Disposition: Admitted As Inpatient Condition: Good Referrals: Monico Guzmán CNP [Primary Care Provider] - Forms: ED Satisfaction Letter, Work/School Release General Adult HPI - General Chief complaint: ED Abdominal Pain Stated complaint: LLQ Pain Time Seen by Provider: 01/15/18 11:52 Source: patient Limitations: no limitations - History of Present Illness Pain Scale: 10 - Related Data Home Medications Medication Instructions Recorded Confirmed Omeprazole [PriLOSEC] 40 mg PO DAILY 08/26/17 01/15/18 Phentermine HCl [Adipex-P] 37.5 mg PO DAILY 01/15/18 01/15/18 Previous Rx's Medication Instructions Recorded Ibuprofen [Motrin] 800 mg PO Q8HR #42 tablet 08/29/17 Allergies Allergy/AdvReac Type Severity Reaction Status Date / Time cephalexin [From Keflex] Allergy Swelling Verified 08/26/17 13:04 of Lip/Tongue/Throat egg Allergy Hives Verified 08/26/17 13:03 Past Medical History - Past Medical History Medical history: Reports: migraine, seizures Surgical history: Reports: , other Psychiatric history: Reports: anxiety [employer] history: Reports: bilateral tubal ligation - Social History Smoking Status: Current every day smoker Smokeless Tobacco Status: No Alcohol use: Reports: none Drug use: Reports: none Physical Exam - General Limitations: no limitations General appearance: alert, in no apparent distress Course Vital Signs Temperature 97.7 F 01/15/18 11:39 Pulse Rate 71 01/15/18 11:39 Respiratory Rate 22 01/15/18 11:39 Blood Pressure 144/90 01/15/18 11:39 O2 Sat by Pulse Oximetry 97 01/15/18 11:39 Temperature 97.7 F 01/15/18 11:48 Pulse Rate 106 01/15/18 14:19 Respiratory Rate 20 01/15/18 14:19 Blood Pressure 120/87 01/15/18 14:19 O2 Sat by Pulse Oximetry 99 01/15/18 14:19 Oxygen Delivery Oxygen Delivery Room Air Medical Decision Making - Lab Data Result diagrams: 01/15/18 12:18 01/15/18 12:18 Lab Results 01/15/18 01/15/18 01/15/18 Range/Units 12:02 12:18 12:18 WBC 9.0 (4.3-11.1) K/mcL RBC 4.79 (3.82-4.97) M/mcL Hgb 12.4 (11.5-15.4) g/dL Hct 38.2 (35.3-44.9) % MCV 79.7 L (83.0-100.0) fL MCH 25.9 L (28.0-33.3) pg MCHC 32.5 (31.6-35.5) g/dL RDW 15.2 H (11.5-14.5) % Plt Count 262 (140-400) K/mcL MPV 10.8 (9.4-12.4) fL Immature Gran % 0.3 (0-4) % Seg Neutrophils % 76.2 % Lymphocytes % 17.5 % Monocytes % 5.0 % Eosinophils % 0.7 % Basophils % 0.3 % Neutrophils # 6.9 (1.6-8.9) K/mcL Lymphocytes # 1.6 (0.6-4.6) K/mcL Monocytes # 0.5 (0.0-1.3) K/mcL Eosinophils # 0.1 (0.0-0.6) K/mcL Basophils # 0.0 (0.0-0.2) K/mcL Sodium 141 (136-145) mEq/L Potassium 3.9 (3.5-5.1) mEq/L Chloride 112 H (98-107) mEq/L Carbon Dioxide 24 (23-29) mEq/L BUN 12 (6-20) mg/dL Creatinine 0.51 L (0.60-1.20) mg/dL Est GFR ( Amer) > 60 (> 60) Est GFR (Non-Af Amer) > 60 (> 60) BUN/Creatinine Ratio 24 (6-26) Glucose 107 H (70-105) mg/dL Calculated Osmolality 292 (280-300) Calcium 9.2 (8.6-10.3) mg/dL Total Bilirubin 0.5 (0.3-1.0) mg/dL Direct Bilirubin 0.1 (0.0-0.2) mg/dL Indirect Bilirubin 0.4 (0.0-1.2) mg/dL AST 16 (13-39) Units/L ALT 27 (7-52) Units/L Alkaline Phosphatase 78 (34-104) Units/L Serum Total Protein 6.9 (6.4-8.9) g/dL Albumin 4.2 (3.5-5.7) g/dL Globulin 2.7 (2.4-3.5) g/dL Albumin/Globulin Ratio 1.6 (1.1-2.2) Lipase 12 (11-82) Units/L Urine Color Yellow (Yellow) Urine Clarity Clear (Clear) Urine pH 7.5 (5.0-8.0) pH Units Ur Specific [place] 1.012 (1.010-1.025) Urine Protein 100 H (Neg-Trace) mg/dL Urine Glucose (UA) Normal (Normal) mg/dL Urine Ketones Negative (Negative) mg/dL Urine Blood Small H (Negative) Urine Nitrite Negative (Negative) Urine Bilirubin Negative (Negative) Urine Urobilinogen Normal (Normal) mg/dL Ur Leukocyte Esterase Negative (Negative) Urine Microscopic RBC 5-15 H (0-3) per hpf Urine Microscopic WBC 3-5 H (0-3) per hpf Ur Squamous Epith Cells Many H (None-Few) per lpf Urine Bacteria None Seen (None-Few) per hpf Hyaline Casts None Seen (None-Few) per lpf Ur Culture Indicated? NO (NO) Urine Test (Negative) 01/15/18 Range/Units 12:26 WBC (4.3-11.1) K/mcL RBC (3.82-4.97) M/mcL Hgb (11.5-15.4) g/dL Hct (35.3-44.9) % MCV (83.0-100.0) fL MCH (28.0-33.3) pg MCHC (31.6-35.5) g/dL RDW (11.5-14.5) % Plt Count (140-400) K/mcL MPV (9.4-12.4) fL Immature Gran % (0-4) % Seg Neutrophils % % Lymphocytes % % Monocytes % % Eosinophils % % Basophils % % Neutrophils # (1.6-8.9) K/mcL Lymphocytes # (0.6-4.6) K/mcL Monocytes # (0.0-1.3) K/mcL Eosinophils # (0.0-0.6) K/mcL Basophils # (0.0-0.2) K/mcL Sodium (136-145) mEq/L Potassium (3.5-5.1) mEq/L Chloride (98-107) mEq/L Carbon Dioxide (23-29) mEq/L BUN (6-20) mg/dL Creatinine (0.60-1.20) mg/dL Est GFR ( Amer) (> 60) Est GFR (Non-Af Amer) (> 60) BUN/Creatinine Ratio (6-26) Glucose (70-105) mg/dL Calculated Osmolality (280-300) Calcium (8.6-10.3) mg/dL Total Bilirubin (0.3-1.0) mg/dL Direct Bilirubin (0.0-0.2) mg/dL Indirect Bilirubin (0.0-1.2) mg/dL AST (13-39) Units/L ALT (7-52) Units/L Alkaline Phosphatase (34-104) Units/L Serum Total Protein (6.4-8.9) g/dL Albumin (3.5-5.7) g/dL Globulin (2.4-3.5) g/dL Albumin/Globulin Ratio (1.1-2.2) Lipase (11-82) Units/L Urine Color (Yellow) Urine Clarity (Clear) Urine pH (5.0-8.0) pH Units Ur Specific [place] (1.010-1.025) Urine Protein (Neg-Trace) mg/dL Urine Glucose (UA) (Normal) mg/dL Urine Ketones (Negative) mg/dL Urine Blood (Negative) Urine Nitrite (Negative) Urine Bilirubin (Negative) Urine Urobilinogen (Normal) mg/dL Ur Leukocyte Esterase (Negative) Urine Microscopic RBC (0-3) per hpf Urine Microscopic WBC (0-3) per hpf Ur Squamous Epith Cells (None-Few) per lpf Urine Bacteria (None-Few) per hpf Hyaline Casts (None-Few) per lpf Ur Culture Indicated? (NO) Urine Test Negative (Negative) Attestation Statement - Attestation Attestation: I examined this patient and my medical decision-making was reviewed with the Resident Physician. I agree with the documented findings, disposition and treatment plan as described except to the extent set forth below. [id number] time provided Patient arrives complaining of intermittent left upper quadrant abdominal pain over the past 2 days. She is uncomfortable appearing on exam. She is unable to find a position of comfort. She is squatting down next to the stretcher. She states she has never had similar pain like this before. The plan of evaluation was discussed by me with the resident physician. We will start with a CT scan around and pelvis and if negative consider pursuing a pelvic ultrasound 15:47: I discussed this case with the on-call surgeon Dr. Rock. He recommends admission to the medicine service with his consultation to follow to determine if the patient requires additional testing including such as an MRCP or ERCP.
--- NOTE | 2018-01-15 12:03 | Emergency Department Note ---
Disposition Clinical Impression: Abdominal pain Qualifiers: Abdominal location: unspecified location Qualified Code(s): R10.9 - Unspecified abdominal pain Disposition: Admitted As Inpatient Condition: Good Forms: ED Satisfaction Letter, Work/School Release General Adult HPI - General Chief complaint: ED Abdominal Pain Stated complaint: LLQ Pain Time Seen by Provider: 01/15/18 11:52 Source: patient Limitations: no limitations Nursing Notes Reviewed: Yes Vital Signs Reviewed: Yes - History of Present Illness HPI Narrative: 27-year-old female who reports 2 days of left upper quadrant abdominal pain. She states it started on its own and then eating makes the pain significantly worse. She does have a history of GERD and takes omeprazole. She is also taking 800 mg of ibuprofen. Past surgical history of cholecystectomy and tubal ligation. She has not had a fever. She has felt nauseated but not vomited. No change in her bowel movements. Urinating okay without any blood. No history of kidney stones. No back pain. Radiation: non-radiation Pain Severity: severe Pain Scale: 10 Quality: stabbing Consistency: constant Improves with: nothing Worsens with: eating Associated symptoms: Reports: denies other symptoms Treatments Prior to Arrival: none - Related Data Home Medications Medication Instructions Recorded Confirmed Omeprazole [PriLOSEC] 40 mg PO DAILY 08/26/17 11/23/17 Previous Rx's Medication Instructions Recorded Ibuprofen [Motrin] 800 mg PO Q8HR #42 tablet 08/29/17 Allergies Allergy/AdvReac Type Severity Reaction Status Date / Time cephalexin [From Keflex] Allergy Swelling Verified 08/26/17 13:04 of Lip/Tongue/Throat egg Allergy Hives Verified 08/26/17 13:03 All systems ED: reviewed and negative except as stated. Constitutional: Denies: fever ENT ED: Denies: throat pain Cardiovascular: Denies: chest pain Respiratory: Denies: cough Gastrointestinal: Reports: abdominal pain, nausea. Denies: vomiting, diarrhea, constipation Genitourinary: Denies: dysuria Musculoskeletal: Denies: back pain Integumentary: Denies: rash Past Medical History - Past Medical History Medical history: Reports: migraine, seizures Surgical history: Reports: , other Psychiatric history: Reports: anxiety [employer] history: Reports: bilateral tubal ligation - Social History Smoking Status: Current every day smoker Smokeless Tobacco Status: No Alcohol use: Reports: none Drug use: Reports: none Physical Exam - General Limitations: no limitations General appearance: alert, in no apparent distress - Head Head exam: atraumatic - Eye Eye exam: Present: normal appearance, PERRL - ENT ENT exam: normal exam - Neck Neck exam: Present: normal inspection - Chest Chest inspection: Present: normal inspection - Respiratory Respiratory exam: Present: normal lung sounds bilaterally. Absent: respiratory distress - Cardiovascular Cardiovascular exam: Present: regular rate, normal rhythm - Abdominal Exam Abdominal exam: Present: soft, tenderness (LUQ, no rebound. No diffuse peritonitis.) - Extremities Exam Extremities exam: Present: normal inspection - Neurological Exam Neurological exam: Present: alert, oriented X3 - Psychiatric Psychiatric exam: Present: normal affect, normal mood - Skin Skin exam: Present: warm, dry Course Course Narrative: CT negative aside from potential post cholecystectomy syndrome, labwork stable. Will obtain u/s to rule out ovarian pathology. U/s negative. Still having significant pain. Spoke with Dr Rock who recommended admission to the hospitalists with surgical consult. They will evaluate for potential need for ERCP. Vital Signs Temperature 97.7 F 01/15/18 11:39 Pulse Rate 71 01/15/18 11:39 Respiratory Rate 22 01/15/18 11:39 Blood Pressure 144/90 01/15/18 11:39 O2 Sat by Pulse Oximetry 97 01/15/18 11:39 Temperature 97.7 F 01/15/18 11:48 Pulse Rate 106 01/15/18 14:19 Respiratory Rate 20 01/15/18 14:19 Blood Pressure 120/87 01/15/18 14:19 O2 Sat by Pulse Oximetry 99 01/15/18 14:19 Oxygen Delivery Oxygen Delivery Room Air Medical Decision Making - Medical Records Medical records reviewed: Yes I reviewed the patient's medical records. - Lab Data Lab results reviewed: Yes I reviewed the patient's lab results. Result diagrams: 01/15/18 12:18 01/15/18 12:18 Lab Results 01/15/18 01/15/18 01/15/18 Range/Units 12:02 12:18 12:18 WBC 9.0 (4.3-11.1) K/mcL RBC 4.79 (3.82-4.97) M/mcL Hgb 12.4 (11.5-15.4) g/dL Hct 38.2 (35.3-44.9) % MCV 79.7 L (83.0-100.0) fL MCH 25.9 L (28.0-33.3) pg MCHC 32.5 (31.6-35.5) g/dL RDW 15.2 H (11.5-14.5) % Plt Count 262 (140-400) K/mcL MPV 10.8 (9.4-12.4) fL Immature Gran % 0.3 (0-4) % Seg Neutrophils % 76.2 % Lymphocytes % 17.5 % Monocytes % 5.0 % Eosinophils % 0.7 % Basophils % 0.3 % Neutrophils # 6.9 (1.6-8.9) K/mcL Lymphocytes # 1.6 (0.6-4.6) K/mcL Monocytes # 0.5 (0.0-1.3) K/mcL Eosinophils # 0.1 (0.0-0.6) K/mcL Basophils # 0.0 (0.0-0.2) K/mcL Sodium 141 (136-145) mEq/L Potassium 3.9 (3.5-5.1) mEq/L Chloride 112 H (98-107) mEq/L Carbon Dioxide 24 (23-29) mEq/L BUN 12 (6-20) mg/dL Creatinine 0.51 L (0.60-1.20) mg/dL Est GFR ( Amer) > 60 (> 60) Est GFR (Non-Af Amer) > 60 (> 60) BUN/Creatinine Ratio 24 (6-26) Glucose 107 H (70-105) mg/dL Calculated Osmolality 292 (280-300) Calcium 9.2 (8.6-10.3) mg/dL Total Bilirubin 0.5 (0.3-1.0) mg/dL Direct Bilirubin 0.1 (0.0-0.2) mg/dL Indirect Bilirubin 0.4 (0.0-1.2) mg/dL AST 16 (13-39) Units/L ALT 27 (7-52) Units/L Alkaline Phosphatase 78 (34-104) Units/L Serum Total Protein 6.9 (6.4-8.9) g/dL Albumin 4.2 (3.5-5.7) g/dL Globulin 2.7 (2.4-3.5) g/dL Albumin/Globulin Ratio 1.6 (1.1-2.2) Lipase 12 (11-82) Units/L Urine Color Yellow (Yellow) Urine Clarity Clear (Clear) Urine pH 7.5 (5.0-8.0) pH Units Ur Specific [place] 1.012 (1.010-1.025) Urine Protein 100 H (Neg-Trace) mg/dL Urine Glucose (UA) Normal (Normal) mg/dL Urine Ketones Negative (Negative) mg/dL Urine Blood Small H (Negative) Urine Nitrite Negative (Negative) Urine Bilirubin Negative (Negative) Urine Urobilinogen Normal (Normal) mg/dL Ur Leukocyte Esterase Negative (Negative) Urine Microscopic RBC 5-15 H (0-3) per hpf Urine Microscopic WBC 3-5 H (0-3) per hpf Ur Squamous Epith Cells Many H (None-Few) per lpf Urine Bacteria None Seen (None-Few) per hpf Hyaline Casts None Seen (None-Few) per lpf Ur Culture Indicated? NO (NO) Urine Test (Negative) 01/15/18 Range/Units 12:26 WBC (4.3-11.1) K/mcL RBC (3.82-4.97) M/mcL Hgb (11.5-15.4) g/dL Hct (35.3-44.9) % MCV (83.0-100.0) fL MCH (28.0-33.3) pg MCHC (31.6-35.5) g/dL RDW (11.5-14.5) % Plt Count (140-400) K/mcL MPV (9.4-12.4) fL Immature Gran % (0-4) % Seg Neutrophils % % Lymphocytes % % Monocytes % % Eosinophils % % Basophils % % Neutrophils # (1.6-8.9) K/mcL Lymphocytes # (0.6-4.6) K/mcL Monocytes # (0.0-1.3) K/mcL Eosinophils # (0.0-0.6) K/mcL Basophils # (0.0-0.2) K/mcL Sodium (136-145) mEq/L Potassium (3.5-5.1) mEq/L Chloride (98-107) mEq/L Carbon Dioxide (23-29) mEq/L BUN (6-20) mg/dL Creatinine (0.60-1.20) mg/dL Est GFR ( Amer) (> 60) Est GFR (Non-Af Amer) (> 60) BUN/Creatinine Ratio (6-26) Glucose (70-105) mg/dL Calculated Osmolality (280-300) Calcium (8.6-10.3) mg/dL Total Bilirubin (0.3-1.0) mg/dL Direct Bilirubin (0.0-0.2) mg/dL Indirect Bilirubin (0.0-1.2) mg/dL AST (13-39) Units/L ALT (7-52) Units/L Alkaline Phosphatase (34-104) Units/L Serum Total Protein (6.4-8.9) g/dL Albumin (3.5-5.7) g/dL Globulin (2.4-3.5) g/dL Albumin/Globulin Ratio (1.1-2.2) Lipase (11-82) Units/L Urine Color (Yellow) Urine Clarity (Clear) Urine pH (5.0-8.0) pH Units Ur Specific [place] (1.010-1.025) Urine Protein (Neg-Trace) mg/dL Urine Glucose (UA) (Normal) mg/dL Urine Ketones (Negative) mg/dL Urine Blood (Negative) Urine Nitrite (Negative) Urine Bilirubin (Negative) Urine Urobilinogen (Normal) mg/dL Ur Leukocyte Esterase (Negative) Urine Microscopic RBC (0-3) per hpf Urine Microscopic WBC (0-3) per hpf Ur Squamous Epith Cells (None-Few) per lpf Urine Bacteria (None-Few) per hpf Hyaline Casts (None-Few) per lpf Ur Culture Indicated? (NO) Urine Test Negative (Negative) - Radiology Data Radiology results reviewed: Yes I reviewed the patient's radiology results.
[2018-01-15 12:34] LABS: Basophils % 0.3 %; Eosinophils # 0.1 K/mcL (0.0-0.6); Eosinophils % 0.7 %; Hematocrit 38.2 % (35.3-44.9); Hemoglobin 12.4 g/dL (11.5-15.4); Immature Granulocytes % 0.3 % (0-4); Lymphocytes # 1.6 K/mcL (0.6-4.6); Lymphocytes % 17.5 %; Mean Corpuscular HGB Conc 32.5 g/dL (31.6-35.5); Mean Corpuscular Hemoglobin 25.9 pg (28.0-33.3); Mean Corpuscular Volume 79.7 fL (83.0-100.0); Mean Platelet Volume 10.8 fL (9.4-12.4); Monocytes # 0.5 K/mcL (0.0-1.3); Neutrophils # 6.9 K/mcL (1.6-8.9); Platelet Count 262 K/mcL (140-400); Red Blood Count 4.79 M/mcL (3.82-4.97); Red Cell Distribution Width 15.2 % (11.5-14.5); Segmented Neutrophils % 76.2 %
[2018-01-15 12:40] LABS: Bilirubin,Urine Negative (Negative); Blood,Urine Small (Negative); Clarity,Urine Clear (Clear); Color,Urine Yellow (Yellow); Glucose,Urine (UA) Normal (Normal); Ketones,Urine Negative (Negative); Leukocyte Esterase,Urine Negative (Negative); Nitrite,Urine Negative (Negative); PH,Urine 7.5 pH Units (5.0-8.0); Protein,Urine 100 mg/dL (Neg-Trace); Specific Gravity,Urine 1.012 (1.010-1.025); Urobilinogen,Urine Normal (Normal)
[2018-01-15 12:44] LABS: Bacteria,Urine None Seen per hpf (None-Few); Hyaline Casts,Urine None Seen per lpf (None-Few); Squamous Epithelial Cell,Urine Many per lpf (None-Few)
[2018-01-15] MEDS ORDERED: *HR* FentaNYL (PF) 100 MCG/2 ML VIAL IVP ONE ×2 (13:10→15:34)
[2018-01-15 13:14] LABS: Alanine Aminotransferase 27 Units/L (7-52); Albumin 4.2 g/dL (3.5-5.7); Albumin/Globulin Ratio 1.6 (1.1-2.2); Alkaline Phosphatase 78 Units/L (34-104); Aspartate Amino Transferase 16 Units/L (13-39); BUN/Creatinine Ratio 24 (6-26); Bilirubin,Direct 0.1 mg/dL (0.0-0.2); Bilirubin,Indirect 0.4 mg/dL (0.0-1.2); Bilirubin,Total 0.5 mg/dL (0.3-1.0); Blood Urea Nitrogen 12 mg/dL (6-20); Calcium 9.2 mg/dL (8.6-10.3); Carbon Dioxide 24 mEq/L (23-29); Chloride 112 mEq/L (98-107); Globulin 2.7 g/dL (2.4-3.5); Glucose 107 mg/dL (70-105); Lipase 12 Units/L (11-82); Osmolality,Calculated 292 (280-300); Potassium 3.9 mEq/L (3.5-5.1); Sodium 141 mEq/L (136-145); Total Protein 6.9 g/dL (6.4-8.9); eGFR For African Americans > 60 (> 60); eGFR For Non-African Americans > 60 (> 60)
--- NOTE | 2018-01-15 16:06 | General Surgery Consult Note ---
Date of Encounter: 01/15/18 Time of Encounter: 16:03 Assessment and Plan (1) Left upper quadrant abdominal pain of unknown etiology Current Visit: Yes Status: Acute Her hospital course thus far has included laboratory studies which reveals a normal white blood cell count, bilirubin, liver functions, and pancreatic functions. CT of the abdomen and pelvis without contrast was obtained and notes dilated fluid filled structure within the gallbladder fossa with several internal calcified stones present. Possibly representing dilated cystic duct or gallbladder remnant. There is a incidental finding of a small fat and colon containing periumbilical hernia. Surgery has been asked to evaluate this patient for possible retained gallbladder contents. Surgery recommends the patient completes and MRCP. Further recommendations pending. NPO IV fluids, supportive care, and discomfort management per primary team History of Present Illness Consult date: 01/15/18 (Dr. Amos Rock) Reason for consult: abdominal pain Requesting physician: Maynor Donaldson History of present illness: Oumou is a 27-year-old female with a PSH of lap roseline in [place] [address] Rock. Of note the cholecystectomy was complicated and took additional 90 minutes. A 15 [place] Hebert drain was left. In follow-up, the patient stated that there was minimal drainage and her pre-surgical discomfort had completely resolved. The drain was removed her follow-up office visit. She presented today with complaints of left upper quadrant pain after eating hot dogs the macaroni and cheese yesterday. The patient states the intensity is similar to that of her previous "gallbladder attacks." This is the 1st occurrence of this discomfort. She denies any alleviating factors other than pain medication here in the hospital. She denies fever, chills, headache, dizziness, chest pain, shortness of breath. She denies urinary signs or symptoms. Her hospital course thus far has included laboratory studies which reveals a normal white blood cell count, bilirubin, liver functions, and pancreatic functions. CT of the abdomen and pelvis without contrast was obtained and notes dilated fluid filled structure within the gallbladder fossa with several internal calcified stones present. Possibly representing dilated cystic duct or gallbladder remnant. There is a incidental finding of a small fat and colon containing periumbilical hernia. Surgery has been asked to evaluate this patient for possible retained gallbladder contents. Past Med Surg Social Fam HX - Past Medical History Medical history: migraine, seizures Psychiatric history: anxiety - Past Surgical History Surgical History: , other - Social History Smoking Status: Current every day smoker Smokeless Tobacco Status: No Alcohol use: none Drug use: none Medications and Allergies Omeprazole [PriLOSEC] 40 mg PO DAILY 08/26/17 [History] Ibuprofen [Motrin] 800 mg PO Q8HR #42 tablet 08/29/17 [Rx] Phentermine HCl [Adipex-P] 37.5 mg PO DAILY 01/15/18 [History] 3 Allergy/AdvReac Type Severity Reaction Status Date / Time cephalexin [From Keflex] Allergy Swelling Verified 08/26/17 13:04 of Lip/Tongue/Throat egg Allergy Hives Verified 08/26/17 13:03 Review of Systems All systems PM: reviewed and no additional remarkable complaints except as stated All systems PM: The remainder of the systems were reviewed and are negative General Surgery Exam Initial Vital Signs Temp Pulse Resp BP Pulse Ox 97.7 F 71 22 144/90 97 01/15/18 11:39 01/15/18 11:39 01/15/18 11:39 01/15/18 11:39 01/15/18 11:39 VITAL SIGNS: Reviewed. See [facility] GENERAL: In no apparent distress. Sitting upright at edge of bed. Morbidly obese. HEENT: Normocephalic, atraumatic, pupils are equal and reactive, extraocular motions intact, oropharynx is pink and moist, there is no neck adenopathy or JVD noted. CHEST/RESPIRATORY: The thorax is free from signs of trauma. Lung sounds: clear to auscultation, normal respiratory effort CARDIAC: distant heart tones, but Regular rate and rhythm. Normal S1 and S2, without murmurs, gallops, or rubs. VASCULAR: No Edema. 2+ peripheral pulses. ABDOMEN: soft, obese, nontender. MUSCULOSKELETAL: Good range of motion of all major joints. Extremities without clubbing, cyanosis or edema. NEUROLOGIC EXAM: Alert and oriented x 3. Speech normal. Follows commands. PSYCHIATRIC: Mood normal. SKIN: No rash or lesions. Exam Initial Vital Signs Temp Pulse Resp BP Pulse Ox 97.7 F 71 22 144/90 97 01/15/18 11:39 01/15/18 11:39 01/15/18 11:39 01/15/18 11:39 01/15/18 11:39 Results - Labs 01/15/18 12:18 01/15/18 12:18 Abnormal lab results MCV 79.7 fL (83.0-100.0) L 01/15/18 12:18 MCH 25.9 pg (28.0-33.3) L 01/15/18 12:18 RDW 15.2 % (11.5-14.5) H 01/15/18 12:18 Chloride 112 mEq/L (98-107) H 01/15/18 12:18 Creatinine 0.51 mg/dL (0.60-1.20) L 01/15/18 12:18 Glucose 107 mg/dL (70-105) H 01/15/18 12:18 Urine Protein 100 mg/dL (Neg-Trace) H 01/15/18 12:02 Urine Blood Small (Negative) H 01/15/18 12:02 Urine Microscopic RBC 5-15 per hpf (0-3) H 01/15/18 12:02 Urine Microscopic WBC 3-5 per hpf (0-3) H 01/15/18 12:02 Ur Squamous Epith Cells Many per lpf (None-Few) H 01/15/18 12:02 Diabetes panel 01/15/18 Range/Units 12:18 Sodium 141 (136-145) mEq/L Potassium 3.9 (3.5-5.1) mEq/L Chloride 112 H (98-107) mEq/L Carbon Dioxide 24 (23-29) mEq/L BUN 12 (6-20) mg/dL Creatinine 0.51 L (0.60-1.20) mg/dL Glucose 107 H (70-105) mg/dL Calcium 9.2 (8.6-10.3) mg/dL AST 16 (13-39) Units/L ALT 27 (7-52) Units/L Alkaline Phosphatase 78 (34-104) Units/L Albumin 4.2 (3.5-5.7) g/dL Calcium panel 01/15/18 Range/Units 12:18 Calcium 9.2 (8.6-10.3) mg/dL Albumin 4.2 (3.5-5.7) g/dL Pituitary panel 01/15/18 Range/Units 12:18 Sodium 141 (136-145) mEq/L Potassium 3.9 (3.5-5.1) mEq/L Chloride 112 H (98-107) mEq/L Carbon Dioxide 24 (23-29) mEq/L BUN 12 (6-20) mg/dL Creatinine 0.51 L (0.60-1.20) mg/dL Glucose 107 H (70-105) mg/dL Calcium 9.2 (8.6-10.3) mg/dL Adrenal panel 01/15/18 Range/Units 12:18 Sodium 141 (136-145) mEq/L Potassium 3.9 (3.5-5.1) mEq/L Chloride 112 H (98-107) mEq/L Carbon Dioxide 24 (23-29) mEq/L BUN 12 (6-20) mg/dL Creatinine 0.51 L (0.60-1.20) mg/dL Glucose 107 H (70-105) mg/dL Calcium 9.2 (8.6-10.3) mg/dL Total Bilirubin 0.5 (0.3-1.0) mg/dL AST 16 (13-39) Units/L ALT 27 (7-52) Units/L Alkaline Phosphatase 78 (34-104) Units/L Albumin 4.2 (3.5-5.7) g/dL All other labs normal. - Imaging CT scan - abdomen: report reviewed CT scan - pelvis: report reviewed Consult Discharge Plan - Plan Referrals: Monico Guzmán, MGIUEL [Primary Care Provider] -
[2018-01-15] MEDS ORDERED: Nicotine 21 MG PATCH.TD24 TD ONE (16:30)
[2018-01-15] MEDS ORDERED: *HR* HYDROmorphone (PF) 1 MG/ML SYRINGE IVP ONE (18:10)
[2018-01-15] MEDS ORDERED: Naloxone 0.4 MG/ML INJ IVP PRN (18:56)
--- NOTE | 2018-01-15 19:26 | Internal Med History&Physical ---
Date of Encounter: 01/15/18 Time of Encounter: 19:00 Internal Medicine - H&P: HPI Admitted From: Home Plans for Post Hospital Care: Home History of present illness: Ms. Muñoz is a 27 year old female patient who began having LUQ pain about 2 days ago. She indicated the pain worsened when she ate a hotdog and macaroni and cheese. The patient indicated that she began to have sharp pain to her LUQ. The patient indicated that she had a cholecystectomy in August 2017. 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 Gastroentrology was consulted by Ed and seen. MRI was ordered and showed apparent contained cystic duct leak with stones, residual gallbladder (incomplete cholecytectomy) or secondary gallbladder with stones. She also has history of migraine, seizures , smoker and GERD. Past Med Surg Social Fam HX - Past Medical History Medical history: migraine, seizures Psychiatric history: anxiety - Past Surgical History Surgical History: , other - Social History Smoking Status: Current every day smoker Packs per day: 2 Smokeless Tobacco Status: No Alcohol use: none Drug use: none Internal Medicine - H&P: Meds Omeprazole [PriLOSEC] 40 mg PO DAILY 08/26/17 [History] Ibuprofen [Motrin] 800 mg PO Q8HR #42 tablet 08/29/17 [Rx] Phentermine HCl [Adipex-P] 37.5 mg PO DAILY 01/15/18 [History] 3 Allergy/AdvReac Type Severity Reaction Status Date / Time cephalexin [From Keflex] Allergy Swelling Verified 08/26/17 13:04 of Lip/Tongue/Throat egg Allergy Hives Verified 08/26/17 13:03 All Systems PM: A 10-system review of systems was performed and is negative for pertinent findings except as documented above in the HPI. - Constitutional Constitutional: no chills, no fever(s), no night sweats - EENT Eyes: no change in vision, no discharge, no pain, no photophobia Ears: no ear discharge, no ear pain, no tinnitus Nose, mouth and throat: no dysphagia, no nasal discharge, no neck pain, no sore throat - Cardiovascular Cardiovascular ROS IM: no chest pain, no diaphoresis, no dyspnea, no lightheadedness, no palpitations, no syncope - Respiratory Respiratory: no cough, no dyspnea, no wheezing, no excessive phlegm production - Gastrointestinal Gastrointestinal: abdominal pain, nausea, no diarrhea, no hematemesis, no hematochezia, no melena, no vomiting - Genitourinary Genitourinary: no change in urinary stream, no dysuria, no flank pain, no hematuria - Musculoskeletal Musculoskeletal ROS IM: no numbness, no tingling - Integumentary Integumentary IM: no rash, no unusual bruising - Neurological Neurological ROS: no confusion, no convulsions, no focal weakness, no numbness, no tingling, no tremor(s) - Hematologic/Lymphatic Hematologic/Lymphatic: no easy bruising - Constitutional Vitals: Temp Pulse Resp BP Pulse Ox 98.3 F 49 16 102/69 96 01/15/18 18:00 01/15/18 18:00 01/15/18 18:00 01/15/18 18:00 01/15/18 18:11 General appearance: Present: A&O X 3 - Head Head exam: Present: atraumatic, normocephalic - Eye Eye exam: Present: PERRL, conjuntiva pink, sclera anicteric Pupils: Present: PERRL - Neck Neck exam general surgery: Present: supple, trachea midline. Absent: lymphadenopathy - Respiratory Respiratory exam: Present: CTAB. Absent: accessory muscle use, rales, rhonchi, wheezes - Cardiovascular Cardiovascular exam: Present: RRR, +S1, +S2. Absent: diastolic murmur, gallop, rubs, systolic murmur - GI/Abdominal GI/Abdominal exam: Present: normal bowel sounds, soft, tenderness, no peritoneal signs. Absent: distended - Extremities Exam Extremities exam: Present: warm, radial pulses palpable and symmetrical. Absent : calf tenderness, cyanotic, pedal edema - Neurological Exam Neurological exam: Present: CN II-XII intact, oriented X3, no focal deficits. Absent: pronater drift, facial droop, speech deficit - Skin Skin exam: Present: dry, intact Internal Med - H&P Results - Labs CBC & Chem 7: 01/15/18 12:18 01/15/18 12:18 - Impressions ITS Impressions Abdomen MRI 01/15/18 16:10 IMPRESSION: 1. Apparent contained cystic duct leak with stones, residual gallbladder (incomplete cholecystectomy) or secondary gallbladder with stones. The predominant component of gallbladder (seen as large and dilated on CT 08/26/2017) is no longer visualized. Inflammatory changes are noted and underlying infectious process cannot be exclude. 2. Unremarkable appearance of the common bile duct and common hepatic duct. 3. The pancreatic duct is diminutive, difficult to visualize on MRCP. D/ / Ernesto Joya / Ernesto Joya Interpreting Provider: Ernesto Joya - Assessment and plan (1) Left upper quadrant abdominal pain of unknown etiology Current Visit: Yes Status: Acute Assessment and plan: LUQ of abdomen pain. The patient CT and MRI showed possible gallstones, cystic duct leak vs incomplete cholecystectomy. GI consulted and on board. NPO x ice, toradol prn for pain. - Time Spent With Patient Total time spent is greater than 50% in coordination of care (as documented) at patient's floor/unit and/or counseling patient: less than 15 minutes
[2018-01-15] MEDS: Ketorolac 30 MG/ML VIAL IVP PRN (20:54)
[2018-01-15] MEDS: Ondansetron 4 MG/2 ML VIAL IVP PRN (20:54)
[2018-01-15] MEDS ORDERED: traMADol 50 MG TABLET PO ONE (22:47)
[2018-01-16] MEDS: Ketorolac 30 MG/ML VIAL IVP PRN (05:19)
[2018-01-16 05:40] LABS: Basophils % 0.3 %; Eosinophils # 0.1 K/mcL (0.0-0.6); Eosinophils % 1.9 %; Hematocrit 35.8 % (35.3-44.9); Hemoglobin 11.4 g/dL (11.5-15.4); Immature Granulocytes % 0.3 % (0-4); Lymphocytes # 2.8 K/mcL (0.6-4.6); Lymphocytes % 37.6 %; Mean Corpuscular HGB Conc 31.8 g/dL (31.6-35.5); Mean Corpuscular Hemoglobin 25.8 pg (28.0-33.3); Mean Platelet Volume 10.7 fL (9.4-12.4); Monocytes # 0.5 K/mcL (0.0-1.3); Monocytes % 6.7 %; Platelet Count 213 K/mcL (140-400); Red Blood Count 4.42 M/mcL (3.82-4.97); Red Cell Distribution Width 15.3 % (11.5-14.5); Segmented Neutrophils % 53.2 %
[2018-01-16 05:59] LABS: BUN/Creatinine Ratio 17 (6-26); Blood Urea Nitrogen 10 mg/dL (6-20); Calcium 8.8 mg/dL (8.6-10.3); Carbon Dioxide 26 mEq/L (23-29); Chloride 110 mEq/L (98-107); Glucose 88 mg/dL (70-105); Osmolality,Calculated 288 (280-300); Sodium 140 mEq/L (136-145); eGFR For African Americans > 60 (> 60); eGFR For Non-African Americans > 60 (> 60)
[2018-01-16] MEDS: Ondansetron 4 MG/2 ML VIAL IVP PRN (08:45)
[2018-01-16] MEDS ORDERED: PHENTERMINE HCL 37.5 MG PO SCH (09:00)
--- NOTE | 2018-01-16 09:30 | General Surgery Progress Note ---
<Shaji Saenz - Last Filed: 01/16/18 19:03> Date of Encounter: 01/16/18 Time of Encounter: 08:15 - Assessment and Plan (1) Left upper quadrant abdominal pain of unknown etiology Current Visit: Yes Status: Acute MRCP results revealed a cystic duct leak with stones however there was no common bile duct dilatation or stones found there. When she arrived, she had no elevations in WBC count, LFTs, bilirubin, or lipase. Patient complaining of pain localized exclusively to the LUQ region of the abdomen, which was verified on exam. Her pain source is unlikely to be due to biliary or pancreatic in origin. GI was consulted and they plan to see the patient today with possible plans for an EGD. - Continue NPO diet. - GI consult with plan for possible EGD. - IV fluids, supportive care, and discomfort management per primary team Abdomen/Pelvis CT 01/15/18 11:59 IMPRESSION: 1. Post cholecystectomy syndrome. 2. Small fat and colon containing periumbilical hernia. D/ / Sunil Ash MD / Sunil Ash MD Interpreting Provider: Sunil Ash MD Abdomen/Pelvis/Transvag US 01/15/18 14:06 IMPRESSION: Unremarkable pelvic ultrasound. Normal Doppler flow within the ovaries. D/ / Harshil Zhou MD / Harshil Zhou MD Interpreting Provider: Harshil Zhou MD Abdomen MRI 01/15/18 16:10 IMPRESSION: 1. Apparent contained cystic duct leak with stones, residual gallbladder (incomplete cholecystectomy) or secondary gallbladder with stones. The predominant component of gallbladder (seen as large and dilated on CT 08/26/2017) is no longer visualized. Inflammatory changes are noted and underlying infectious process cannot be exclude. 2. Unremarkable appearance of the common bile duct and common hepatic duct. 3. The pancreatic duct is diminutive, difficult to visualize on MRCP. D/ / Ernesto Joya / Ernesto Joya Interpreting Provider: Ernesto Joya (2) Status post laparoscopic cholecystectomy Current Visit: No Status: Acute Subjective Narrative: Patient is complaining of moderate left upper quadrant pain. She says it is improved with applying pressure. She admits to nausea and vomiting. Denies any hematemesis. Admits to having bowel movements. Denies any chest pain or shortness of breath. Objective VITAL SIGNS: Reviewed. See [facility] GENERAL: no apparent distress HEENT: [Normocephalic, PER, EOMi, oropharynx pink/moist, no JVD noted.] CV: b/l rad pulses 2+, RRR, no murmurs or gallops, no JVD RESPIRATORY: CTAB without wheezes, rales, or rhonchi ABD: soft, moderate tenderness to deep palpation of LUQ, no rebound/guarding/ rigidity, no peritoneal signs. Normal bowel sounds. EXTREMITY: grossly normal motor function, no pedal edema, peripheral pulses 2+ b /l NEUROLOGIC EXAM: AOx3, obeys commands, no speech deficits. PSYCHIATRIC: normal mood and affect SKIN: no gross lesions, rashes, or skin changes Vital Signs - Last 8 Hours Temp Pulse Resp BP Pulse Ox 01/16/18 08:38 94 01/16/18 07:50 98.1 F 87 16 105/66 94 01/16/18 05:45 98.5 F 74 15 108/70 96 Intake and Output 01/15/18 01/16/18 01/16/18 23:59 07:59 15:59 Intake Total 0 / 0 0 / 0 Balance 0 / 0 0 / 0 Intake: Oral 0 / 0 0 / 0 Other: Meal NPO Percent of Meal Consumed 0% # Voids 1 1 # Bowel Movements 0 Blood Glucose* 88 - Labs 01/16/18 05:13 01/16/18 05:13 Diabetes panel 01/16/18 Range/Units 05:13 Sodium 140 (136-145) mEq/L Potassium 4.0 (3.5-5.1) mEq/L Chloride 110 H (98-107) mEq/L Carbon Dioxide 26 (23-29) mEq/L BUN 10 (6-20) mg/dL Creatinine 0.58 L (0.60-1.20) mg/dL Glucose 88 (70-105) mg/dL Calcium 8.8 (8.6-10.3) mg/dL Calcium panel 01/16/18 Range/Units 05:13 Calcium 8.8 (8.6-10.3) mg/dL Pituitary panel 01/16/18 Range/Units 05:13 Sodium 140 (136-145) mEq/L Potassium 4.0 (3.5-5.1) mEq/L Chloride 110 H (98-107) mEq/L Carbon Dioxide 26 (23-29) mEq/L BUN 10 (6-20) mg/dL Creatinine 0.58 L (0.60-1.20) mg/dL Glucose 88 (70-105) mg/dL Calcium 8.8 (8.6-10.3) mg/dL Adrenal panel 01/16/18 Range/Units 05:13 Sodium 140 (136-145) mEq/L Potassium 4.0 (3.5-5.1) mEq/L Chloride 110 H (98-107) mEq/L Carbon Dioxide 26 (23-29) mEq/L BUN 10 (6-20) mg/dL Creatinine 0.58 L (0.60-1.20) mg/dL Glucose 88 (70-105) mg/dL Calcium 8.8 (8.6-10.3) mg/dL Consult Discharge Plan - Plan Referrals: Monico Guzmán, [employer] [Primary Care Provider] - <Amos Rock - Last Filed: 01/17/18 10:07> Date of Encounter: 01/16/18 Objective Vital Signs - Last 8 Hours Temp Pulse Resp BP Pulse Ox 01/17/18 06:45 98.0 F 72 15 115/72 96 01/17/18 04:27 97.9 F 67 18 105/62 95 Intake and Output 01/16/18 01/17/18 01/17/18 23:59 07:59 15:59 Intake Total 390 / 390 1000 / 1000 Output Total 0 / 0 Balance 390 / 390 1000 / 1000 Intake: IV Fluids 150 / 150 1000 / 1000 Lactated Ringers 1,000 ML @ 100 1000 / 1000 mls/hr IVC .Q10H [facility] Rx#: [id number] Levaquin Premix 750mg/150 mL 150 / 150 750 mg In 150 ml @ 100 mls/hr IVPB DAILY GAL Rx#:[id number] Oral 240 / 240 0 / 0 Output: Urine 0 / 0 Other: Meal Dinner Percent of Meal Consumed 100% # Voids 1 Weight 148.325 kg Patient Weight 01/17/18 23:59 Weight 148.325 kg - Labs 01/17/18 04:53 01/17/18 04:53 Diabetes panel 01/17/18 Range/Units 04:53 Sodium 141 (136-145) mEq/L Potassium 4.2 (3.5-5.1) mEq/L Chloride 111 H (98-107) mEq/L Carbon Dioxide 26 (23-29) mEq/L BUN 14 (6-20) mg/dL Creatinine 0.59 L (0.60-1.20) mg/dL Glucose 97 (70-105) mg/dL Calcium 9.0 (8.6-10.3) mg/dL Calcium panel 01/17/18 Range/Units 04:53 Calcium 9.0 (8.6-10.3) mg/dL Pituitary panel 01/17/18 Range/Units 04:53 Sodium 141 (136-145) mEq/L Potassium 4.2 (3.5-5.1) mEq/L Chloride 111 H (98-107) mEq/L Carbon Dioxide 26 (23-29) mEq/L BUN 14 (6-20) mg/dL Creatinine 0.59 L (0.60-1.20) mg/dL Glucose 97 (70-105) mg/dL Calcium 9.0 (8.6-10.3) mg/dL Adrenal panel 01/17/18 Range/Units 04:53 Sodium 141 (136-145) mEq/L Potassium 4.2 (3.5-5.1) mEq/L Chloride 111 H (98-107) mEq/L Carbon Dioxide 26 (23-29) mEq/L BUN 14 (6-20) mg/dL Creatinine 0.59 L (0.60-1.20) mg/dL Glucose 97 (70-105) mg/dL Calcium 9.0 (8.6-10.3) mg/dL - Attending Attestation I examined this patient and my medical decision-making was reviewed with the Resident Physician. I agree with the documented findings, disposition and treatment plan as described except to the extent set forth below. I reviewed the above assessment and evaluation with the resident and agree with the above plan. Pain is particularly in the left upper quadrant with no right upper quadrant or right-sided abdominal pain whatsoever. No nausea or vomiting. Will go ahead and consult gastroneurology for further evaluation to ensure that the GI tract is not a source. I do not think that the cause of her pain is due to the gallbladder fossa abnormality seen by CT scan and MRCP.
[2018-01-16] MEDS: Ringers Solution, Lactated 1,000 ML IVC SCH (11:50)
--- NOTE | 2018-01-16 11:58 | Gastroenterology Consult Note ---
<HoskinsYonas hernandez Wanda - Last Filed: 01/16/18 11:56> Date of Encounter: 01/16/18 Time of Encounter: 11:35 - Assessment and plan (1) Left upper quadrant abdominal pain of unknown etiology Current Visit: Yes Status: Acute Assessment and plan: Continue omeprazole daily and plan for EGD today to r/o esophagitis, gastritis, duodenitis, PUD, MW tear, or AVM. Keep patient NPO for now. CT A/P showed post cholecystectomy syndrome and small fat and colon containing periumbilical hernia. MRCP showed contained cystic duct leak with stones, residual gallbladder ( incomplete cholecystectomy) or secondary gallbladder with stones, unremarkable appearance of the CBD and common hepatic duct, pancreatic duct is diminutive, difficult to visualize on MRCP. Patient educated regarding lifestyle modifications including: (1) avoidance of foods that may precipitate reflux (eg, coffee, alcohol, chocolate, fatty foods) . (2) avoidance of acidic foods that may precipitate heartburn (eg, citrus, carbonated drinks, spicy foods). (3) adoption of behaviors that may reduce esophageal acid exposure (see weight loss, smoking cessation, raising the head of the bed, and avoiding recumbency for 2-3 hours after meals). (2) Status post laparoscopic cholecystectomy Current Visit: No Status: Acute - Time Spent With Patient Total time spent is greater than 50% in coordination of care (as documented) at patient's floor/unit and/or counseling patient: GI History of Present Illness - Data of Consult Consult date: 01/16/18 Requesting Physician: Jane Gomes - Consult Narrative Reason for consult: LUQ pain History of present illness: Ms. Muñoz is a 27 year old female with PMHx of migraine, seizures, s/p lap roseline August [address] Rock who presented to the ED with complaints of LUQ pain after eating hotdogs and macaroni and cheese, which was similar to her previous gallbladder attack. She denies fever, chills, chest pain, shortness of breath, nausea, vomiting, melena, or hematochezia. CT A/P showed post cholecystectomy syndrome and small fat and colon containing periumbilical hernia. MRCP showed contained cystic duct leak with stones, residual gallbladder (incomplete cholecystectomy) or secondary gallbladder with stones, unremarkable appearance of the CBD and common hepatic duct, pancreatic duct is diminutive, difficult to visualize on MRCP. Procedures: EGD 08/27/2017 Dr. Rock: LA Grade C reflux esophagitis. NSAIDs: Ibuprofen Anticoagulation: None Past Med Surg Social Fam HX - Past Medical History Medical history: migraine, seizures Psychiatric history: anxiety - Past Surgical History Surgical History: , other - Social History Smoking Status: Current every day smoker Packs per day: 2 Smokeless Tobacco Status: No Alcohol use: none Drug use: none - Gastrointestinal Gastrointestinal: Present: as per HPI - Constitutional Constitutional: as per HPI - EENT Eyes: as per HPI Ears: Present: as per HPI Nose, mouth and throat: Present: as per HPI - Cardiovascular Cardiovascular ROS: Present: as per HPI - Respiratory Respiratory IM: Present: as per HPI - Genitourinary Genitourinary: Absent: change in color, Urinary frequency - Neurological ROS Neurological GI: Present: as per HPI - Hematologic/Lymphatic Hematologic/Lymphatic pediatric: Present: as per HPI - Musculoskeletal Musculoskeletal ROS GI: Present: as per HPI - Integumentary Integumentary GI: Present: as per HPI - Psychiatric ROS Psychiatric GI: Present: as per HPI - Endocrine Endocrine IM: Present: as per HPI - Constitutional Vitals: Temp Pulse Resp BP Pulse Ox 98.2 F 76 15 94/59 99 01/16/18 10:45 01/16/18 10:45 01/16/18 10:45 01/16/18 11:15 01/16/18 10:45 General appearance: Present: cooperative, A&O X 3, no acute distress, answers questions appropriately - Head Head exam: Present: atraumatic, normocephalic - Eye Eye exam: Present: normal appearance, sclera anicteric - ENT ENT exam: Present: mucous membranes dry - Neck Neck exam general surgery: Present: normal inspection, trachea midline - Respiratory Respiratory exam: Present: CTAB. Absent: rales, rhonchi - Cardiovascular Cardiovascular exam: Present: RRR, +S1, +S2 - GI/Abdominal GI/Abdominal exam: Present: soft, tenderness (LUQ and epigastric), no peritoneal signs. Absent: distended, firm, guarding Additional comments: Obese - Rectal Rectal exam: Present: deferred - Extremities Exam Extremities exam: Present: warm - Neurological Exam Neurological exam: Present: no focal deficits - Psychiatric Psychiatric exam: Present: normal affect, normal mood - Skin Skin exam: Present: dry, intact, normal color, warm Results - Labs CBC & Chem 7: 01/16/18 05:13 01/16/18 05:13 Labs: Last Result Calcium 8.8 mg/dL (8.6-10.3) 01/16/18 05:13 Entire Visit Hgb 11.4 g/dL (11.5-15.4) L 01/16/18 05:13 Hct 35.8 % (35.3-44.9) 01/16/18 05:13 Total Bilirubin 0.5 mg/dL (0.3-1.0) 01/15/18 12:18 AST 16 Units/L (13-39) 01/15/18 12:18 ALT 27 Units/L (7-52) 01/15/18 12:18 Lipase 12 Units/L (11-82) 01/15/18 12:18 - Impressions Impressions Abdomen MRI 01/15/18 16:10 IMPRESSION: 1. Apparent contained cystic duct leak with stones, residual gallbladder (incomplete cholecystectomy) or secondary gallbladder with stones. The predominant component of gallbladder (seen as large and dilated on CT 08/26/2017) is no longer visualized. Inflammatory changes are noted and underlying infectious process cannot be exclude. 2. Unremarkable appearance of the common bile duct and common hepatic duct. 3. The pancreatic duct is diminutive, difficult to visualize on MRCP. D/ / Ernesto Joya / Ernesto Joya Interpreting Provider: Ernesto Joya Consult Discharge Plan - Plan Referrals: Monico Guzmán, [employer]PERATOR [Primary Care Provider] - <Shi Gonzales - Last Filed: 01/16/18 15:05> Date of Encounter: 01/16/18 Time of Encounter: 14:00 - Time Spent With Patient Total time spent is greater than 50% in coordination of care (as documented) at patient's floor/unit and/or counseling patient: GI History of Present Illness - Data of Consult Requesting Physician: Jane Gomes - Consult Narrative History of present illness: Ms. Muñoz is a 27 year old female - Constitutional Vitals: Temp Pulse Resp BP Pulse Ox 98.2 F 73 18 93/63 98 05/17/18 14:04 01/16/18 14:04 01/16/18 14:04 01/16/18 14:04 01/16/18 14:04 Results - Labs CBC & Chem 7: 01/16/18 05:13 01/16/18 05:13 Labs: Last Result Calcium 8.8 mg/dL (8.6-10.3) 01/16/18 05:13 Entire Visit Hgb 11.4 g/dL (11.5-15.4) L 01/16/18 05:13 Hct 35.8 % (35.3-44.9) 01/16/18 05:13 Total Bilirubin 0.5 mg/dL (0.3-1.0) 01/15/18 12:18 AST 16 Units/L (13-39) 01/15/18 12:18 ALT 27 Units/L (7-52) 01/15/18 12:18 Lipase 12 Units/L (11-82) 01/15/18 12:18 - Impressions Impressions Abdomen MRI 01/15/18 16:10 IMPRESSION: 1. Apparent contained cystic duct leak with stones, residual gallbladder (incomplete cholecystectomy) or secondary gallbladder with stones. The predominant component of gallbladder (seen as large and dilated on CT 08/26/2017) is no longer visualized. Inflammatory changes are noted and underlying infectious process cannot be exclude. 2. Unremarkable appearance of the common bile duct and common hepatic duct. 3. The pancreatic duct is diminutive, difficult to visualize on MRCP. D/ / Ernesto Joya / Ernesto Joya Interpreting Provider: Ernesto Joya - Attending Attestation I have personally performed a face to face evaluation on this patient. I have reviewed and agree with the care plan. History and Exam by me shows: Patient seen patient was left lower quadrant pain for the last 2 days. Examination abdomen is bebign but pain is reproducible in the lower chest. His most probably costochondral in origin. Recommendation: EGD to rule out gastric causes of the pain as patient does has a history of peptic ulcer disease.
[2018-01-16] MEDS: traMADol 50 MG TABLET PO PRN ×2 (12:20→18:38)
--- NOTE | 2018-01-16 12:57 | Internal Med Progress Note ---
Date of Encounter: 01/16/18 Time of Encounter: 11:00 - Assessment and plan (1) Left upper quadrant abdominal pain of unknown etiology Current Visit: Yes Status: Acute Assessment and plan: Etiology uncertain. MRI of the abdomen shows contained ductal leak with stones and residual gallbladder or secondary gallbladder with stones. However the patient is having pain in the left upper quadrant. As such gastroenterology has been consulted. Plan for upper GI endoscopy today. Continue PPI. Surgery is also following patient. We will follow recommendations. (2) Morbid obesity with BMI of 50.0-59.9, adult Current Visit: Yes Status: Chronic (3) Status post laparoscopic cholecystectomy Current Visit: No Status: Acute Assessment and plan: Patient underwent cholecystectomy last August. - Time Spent With Patient Total time spent is greater than 50% in coordination of care (as documented) at patient's floor/unit and/or counseling patient: - Subjective Interval history: Patient complaining of abdominal pain. Mainly in the left upper quadrant currently. No fever or chills overnight. No currently nothing by mouth. No reported episodes of emesis. She complains 8/10 pain currently. - Constitutional Vitals: Temp Pulse Resp BP Pulse Ox 98.2 F 76 15 114/65 99 01/16/18 10:45 01/16/18 10:45 01/16/18 10:45 01/16/18 12:19 01/16/18 10:45 General appearance: Present: cooperative, mild distress, A&O X 3, morbidly obese , answers questions appropriately - Respiratory Respiratory exam: Present: CTAB. Absent: accessory muscle use, rales, rhonchi, wheezes - Cardiovascular Cardiovascular exam: Present: RRR, +S1, +S2. Absent: diastolic murmur, gallop, rubs, systolic murmur - GI/Abdominal GI/Abdominal exam: Present: normal bowel sounds, soft, tenderness (Tender in the left upper quadrant currently.), no peritoneal signs. Absent: distended - Extremities Exam Extremities exam: Present: warm, radial pulses palpable and symmetrical. Absent : calf tenderness, cyanotic, pedal edema - Neurological Exam Neurological exam: Present: CN II-XII intact, oriented X3, no focal deficits. Absent: facial droop, speech deficit Internal Medicine: Result - Labs CBC & Chem 7: 01/16/18 05:13 01/16/18 05:13 Labs: Short CBC 01/16/18 Range/Units 05:13 WBC 7.6 (4.3-11.1) K/mcL Hgb 11.4 L (11.5-15.4) g/dL Hct 35.8 (35.3-44.9) % Plt Count 213 (140-400) K/mcL Neutrophils # 4.0 (1.6-8.9) K/mcL BMP 01/16/18 05:13 Sodium 140 Potassium 4.0 Chloride 110 H Carbon Dioxide 26 BUN 10 Creatinine 0.58 L Glucose 88 Calcium 8.8 - Impressions Impressions Abdomen MRI 01/15/18 16:10 IMPRESSION: 1. Apparent contained cystic duct leak with stones, residual gallbladder (incomplete cholecystectomy) or secondary gallbladder with stones. The predominant component of gallbladder (seen as large and dilated on CT 08/26/2017) is no longer visualized. Inflammatory changes are noted and underlying infectious process cannot be exclude. 2. Unremarkable appearance of the common bile duct and common hepatic duct. 3. The pancreatic duct is diminutive, difficult to visualize on MRCP. D/ / Ernesto Joya / Ernesto Joya Interpreting Provider: Ernesto Joya Consult Discharge Plan - Plan Referrals: Monico Guzmán CNP [Primary Care Provider] -
[2018-01-16] MEDS ORDERED: *HR* Propofol 200 MG/20 ML VIAL IVP ONE ×2 (13:16→13:46)
[2018-01-16] MEDS ORDERED: Lidocaine -MPF 2% 2 ML VIAL ONE (13:16)
[2018-01-16] MEDS ORDERED: *HR* FentaNYL (PF) 100 MCG/2 ML VIAL ONE (13:16)
--- NOTE | 2018-01-16 13:41 | Anesthesia Evaluation PreOp ---
Date of Encounter: 01/16/18 Time of Encounter: 13:40 - Past History Planned Operation: EGD Cardiac History: Denies any Significant Hx Pulmonary History: Smoker [employer] History: Seizures, Other (Migraine) Other Medical History: GERD, Other (Morbid Obesity) Anesthesia History: No Prior Anesthetic Complications : No Test: Negative Alcohol Use: none Drug use: none Medications and Allergies Omeprazole [PriLOSEC] 40 mg PO DAILY 08/26/17 [History] Ibuprofen [Motrin] 800 mg PO Q8HR #42 tablet 08/29/17 [Rx] Phentermine HCl [Adipex-P] 37.5 mg PO DAILY 01/15/18 [History] 3 Allergy/AdvReac Type Severity Reaction Status Date / Time cephalexin [From Keflex] Allergy Swelling Verified 08/26/17 13:04 of Lip/Tongue/Throat egg Allergy Hives Verified 08/26/17 13:03 - Meds/Allergy Pre-op Review Medications Reviewed: Yes Allergies Reviewed: Yes Beta Blockers on Current Med List: No Anesthesia Results - Labs 01/16/18 05:13 01/16/18 05:13 Laboratory Tests 01/16/18 01/16/18 05:13 05:13 Hgb 11.4 L Hct 35.8 Plt Count 213 Sodium 140 Potassium 4.0 BUN 10 Creatinine 0.58 L Anesthesia Exam Vital Signs/O2 Sat/Glucose, Most Current Temp Pulse Resp BP Pulse Ox 01/16/18 12:19 114/65 01/16/18 11:15 94/59 01/16/18 10:45 98.2 F 76 15 90/54 99 Height: 4'11 Weight: 280 lbs NPO (# of Hours): MN Pain Scale: 0 - HEENT Pupil (Motor): Pupils equal, EOMI Mallampati: III Teeth: Normal Oral Opening: Less than or equal to 3 - [employer] LOC: Oriented [employer] Motor: Normal RUE, Normal LUE, Normal RLE, Normal LLE, Normal Face [employer] Sensory: Normal: RUE, LUE, RLE, LLE, Face - Cardiac Rhythm: Regular Murmur: None JVD: No Carotid Bruit: No - Pulmonary Breath Sounds: bilateral Clear Respiratory Effort: Symmetrical Anesthesia Assess/Plan ASA Score: 3 (Tobacco MO) Modified Valeria Scale for Level of Consciousness: Cooperative, oriented, and tranquil Anesthetic Plan: MAC Monitoring Plan: Standard Monitors Recovery Plan: Other (Discussed MAC, possible GA, agreees to proceed)
--- NOTE | 2018-01-16 16:12 | Event Note ---
Date of Encounter: 01/16/18 Time of Encounter: 16:11 Patient reported left lower chest wall pain prior to EGD. Tenderness present. Obtain chest x-ray which shows possible left lower lobe pneumonia. Patient does not have any clinical signs but given her chest x-ray findings and pain located in this region, will start her on antibiotics after drawing 2 sets of blood cultures.
[2018-01-16] MEDS ORDERED: Nicotine 21 MG PATCH.TD24 TD ONE (16:18)
[2018-01-16] MEDS: Levofloxacin 750 MG/150 ML 750 MG/150 ML BAG IVPB SCH (16:50)
[2018-01-16] MEDS: Nicotine 21 MG PATCH.TD24 TD SCH (18:38)
[2018-01-16] MEDS ORDERED: Ketorolac 30 MG/ML VIAL IVP STA (22:26)
[2018-01-17] MEDS ORDERED: Melatonin 3 MG TABLET PO PRN (00:35)
[2018-01-17] MEDS: Ringers Solution, Lactated 1,000 ML IVC SCH (00:48)
[2018-01-17] MEDS: traMADol 50 MG TABLET PO PRN (00:48)
[2018-01-17 05:15] LABS: Basophils % 0.5 %; Eosinophils # 0.1 K/mcL (0.0-0.6); Hematocrit 34.5 % (35.3-44.9); Hemoglobin 10.8 g/dL (11.5-15.4); Immature Granulocytes % 0.3 % (0-4); Lymphocytes # 2.2 K/mcL (0.6-4.6); Lymphocytes % 36.2 %; Mean Corpuscular HGB Conc 31.3 g/dL (31.6-35.5); Mean Corpuscular Hemoglobin 25.3 pg (28.0-33.3); Mean Corpuscular Volume 80.8 fL (83.0-100.0); Mean Platelet Volume 10.9 fL (9.4-12.4); Monocytes # 0.4 K/mcL (0.0-1.3); Monocytes % 6.5 %; Neutrophils # 3.3 K/mcL (1.6-8.9); Platelet Count 197 K/mcL (140-400); Red Blood Count 4.27 M/mcL (3.82-4.97); Red Cell Distribution Width 15.2 % (11.5-14.5); Segmented Neutrophils % 54.5 %
[2018-01-17 05:34] LABS: BUN/Creatinine Ratio 24 (6-26); Blood Urea Nitrogen 14 mg/dL (6-20); Carbon Dioxide 26 mEq/L (23-29); Chloride 111 mEq/L (98-107); Glucose 97 mg/dL (70-105); Osmolality,Calculated 292 (280-300); Potassium 4.2 mEq/L (3.5-5.1); Sodium 141 mEq/L (136-145); eGFR For African Americans > 60 (> 60); eGFR For Non-African Americans > 60 (> 60)
--- NOTE | 2018-01-17 09:23 | General Surgery Progress Note ---
<Amos Rock Sarwat - Last Filed: 01/17/18 10:07> Date of Encounter: 01/17/18 Objective Vital Signs - Last 8 Hours Temp Pulse Resp BP Pulse Ox 01/17/18 06:45 98.0 F 72 15 115/72 96 01/17/18 04:27 97.9 F 67 18 105/62 95 Intake and Output 01/16/18 01/17/18 01/17/18 23:59 07:59 15:59 Intake Total 390 / 390 1000 / 1000 Output Total 0 / 0 Balance 390 / 390 1000 / 1000 Intake: IV Fluids 150 / 150 1000 / 1000 Lactated Ringers 1,000 ML @ 100 1000 / 1000 mls/hr IVC .Q10H GAL Rx#: [id number] Levaquin Premix 750mg/150 mL 150 / 150 750 mg In 150 ml @ 100 mls/hr IVPB DAILY GAL Rx#:[id number] Oral 240 / 240 0 / 0 Output: Urine 0 / 0 Other: Meal Dinner Percent of Meal Consumed 100% # Voids 1 Weight 148.325 kg Patient Weight 01/17/18 23:59 Weight 148.325 kg - Labs 01/17/18 04:53 01/17/18 04:53 Diabetes panel 01/17/18 Range/Units 04:53 Sodium 141 (136-145) mEq/L Potassium 4.2 (3.5-5.1) mEq/L Chloride 111 H (98-107) mEq/L Carbon Dioxide 26 (23-29) mEq/L BUN 14 (6-20) mg/dL Creatinine 0.59 L (0.60-1.20) mg/dL Glucose 97 (70-105) mg/dL Calcium 9.0 (8.6-10.3) mg/dL Calcium panel 01/17/18 Range/Units 04:53 Calcium 9.0 (8.6-10.3) mg/dL Pituitary panel 01/17/18 Range/Units 04:53 Sodium 141 (136-145) mEq/L Potassium 4.2 (3.5-5.1) mEq/L Chloride 111 H (98-107) mEq/L Carbon Dioxide 26 (23-29) mEq/L BUN 14 (6-20) mg/dL Creatinine 0.59 L (0.60-1.20) mg/dL Glucose 97 (70-105) mg/dL Calcium 9.0 (8.6-10.3) mg/dL Adrenal panel 01/17/18 Range/Units 04:53 Sodium 141 (136-145) mEq/L Potassium 4.2 (3.5-5.1) mEq/L Chloride 111 H (98-107) mEq/L Carbon Dioxide 26 (23-29) mEq/L BUN 14 (6-20) mg/dL Creatinine 0.59 L (0.60-1.20) mg/dL Glucose 97 (70-105) mg/dL Calcium 9.0 (8.6-10.3) mg/dL Consult Discharge Plan - Plan Referrals: Monico Guzmán CNP [Primary Care Provider] - - Attending Attestation I examined this patient and my medical decision-making was reviewed with the Resident Physician. I agree with the documented findings, disposition and treatment plan as described except to the extent set forth below. Review the above assessment and evaluation and agree with the above plan. EGD was essentially normal. Patient now has pain along the rib cage. She has a chest x-ray which is concerning for an infiltrate or possible pneumonia on the left side. I do not think that the cause of her pain is GI related particularly with regards to the abnormal findings and the gallbladder fossa by CAT scan. I would recommend a CT scan of the chest for further evaluation of the changes of the lung parenchyma. She continues to deny any right-sided abdominal pain nor any nausea or vomiting. We will sign off at this time. Think you very much. <Shaji Saenz - Last Filed: 01/17/18 10:18> Date of Encounter: 01/17/18 Time of Encounter: 09:00 - Assessment and Plan (1) Left upper quadrant abdominal pain of unknown etiology Current Visit: Yes Status: Acute MRCP results revealed a cystic duct leak with stones however there was no common bile duct dilatation or stones found there. When she arrived, she had no elevations in WBC count, LFTs, bilirubin, or lipase. Patient complaining of pain localized exclusively to the LUQ region of the abdomen, which was verified on exam. Her pain source is unlikely to be due to biliary or pancreatic in origin. GI was consulted yesterday and they performed an EGD on her which was normal. Her pain continues to persist in the LUQ, but it seems more around the area of her rib cage. CXR taken yesterday reveals possible LLL PNA. WBC normal at 6.0. Afebrile. Primary team to start her on antibiotics and obtain blood cultures. From our standpoint, her pain does not seem to be GI related and does not appear to be a surgical matter. Given she complains of pain in the LUQ region over her ribcage and the finding of possible PNA on her CXR, we would recommend patient to have a CT of the chest done. At this point, surgery will sign off on this patient. Chest X-Ray 01/16/18 14:57 IMPRESSION: Left lower lobe airspace disease possibly representing pneumonia D/ / Yonas Watt MD / Yonas Watt MD Interpreting Provider: Yonas Watt MD - Continue NPO diet. - GI consult with plan for possible EGD. - IV fluids, supportive care, and discomfort management per primary team (2) Status post laparoscopic cholecystectomy Current Visit: No Status: Acute Subjective Narrative: Patient continues to complain of LUQ pain that is the same in severity since yesterday. She denies any fever or chills. Denies any nausea or vomiting. Denies any chest pain or SOB. Admits to having a BM. Denies any melena or hematochezia. Objective VITAL SIGNS: Reviewed. See [facility] GENERAL: no apprent distress. HEENT: [Normocephalic, PER, EOMi, oropharynx pink/moist, no JVD noted.] CV: b/l rad pulses 2+, RRR, no murmurs or gallops, no JVD RESPIRATORY: CTAB without wheezes, rales, or rhonchi ABD: soft, moderate tenderness to LUQ region but more specifically it seems to tender on her ribcage with palpation. no rebound/guarding/rigidity, no peritoneal signs EXTREMITY: grossly normal motor function, no pedal edema, peripheral pulses 2+ b /l NEUROLOGIC EXAM: AOx3, obeys commands, no speech deficits. PSYCHIATRIC: normal mood and affect SKIN: no gross lesions, rashes, or skin changes Vital Signs - Last 8 Hours Temp Pulse Resp BP Pulse Ox 01/17/18 06:45 98.0 F 72 15 115/72 96 01/17/18 04:27 97.9 F 67 18 105/62 95 Intake and Output 01/16/18 01/17/18 01/17/18 23:59 07:59 15:59 Intake Total 390 / 390 1000 / 1000 Output Total 0 / 0 Balance 390 / 390 1000 / 1000 Intake: IV Fluids 150 / 150 1000 / 1000 Lactated Ringers 1,000 ML @ 100 1000 / 1000 mls/hr IVC .Q10H GAL Rx#: [id number] Levaquin Premix 750mg/150 mL 150 / 150 750 mg In 150 ml @ 100 mls/hr IVPB DAILY GAL Rx#:[id number] Oral 240 / 240 0 / 0 Output: Urine 0 / 0 Other: Meal Dinner Percent of Meal Consumed 100% # Voids 1 Weight 148.325 kg Patient Weight 01/17/18 23:59 Weight 148.325 kg - Labs 01/17/18 04:53 01/17/18 04:53 Diabetes panel 01/17/18 Range/Units 04:53 Sodium 141 (136-145) mEq/L Potassium 4.2 (3.5-5.1) mEq/L Chloride 111 H (98-107) mEq/L Carbon Dioxide 26 (23-29) mEq/L BUN 14 (6-20) mg/dL Creatinine 0.59 L (0.60-1.20) mg/dL Glucose 97 (70-105) mg/dL Calcium 9.0 (8.6-10.3) mg/dL Calcium panel 01/17/18 Range/Units 04:53 Calcium 9.0 (8.6-10.3) mg/dL Pituitary panel 01/17/18 Range/Units 04:53 Sodium 141 (136-145) mEq/L Potassium 4.2 (3.5-5.1) mEq/L Chloride 111 H (98-107) mEq/L Carbon Dioxide 26 (23-29) mEq/L BUN 14 (6-20) mg/dL Creatinine 0.59 L (0.60-1.20) mg/dL Glucose 97 (70-105) mg/dL Calcium 9.0 (8.6-10.3) mg/dL Adrenal panel 01/17/18 Range/Units 04:53 Sodium 141 (136-145) mEq/L Potassium 4.2 (3.5-5.1) mEq/L Chloride 111 H (98-107) mEq/L Carbon Dioxide 26 (23-29) mEq/L BUN 14 (6-20) mg/dL Creatinine 0.59 L (0.60-1.20) mg/dL Glucose 97 (70-105) mg/dL Calcium 9.0 (8.6-10.3) mg/dL
[2018-01-17] MEDS: Nicotine 21 MG PATCH.TD24 TD SCH (09:36)
[2018-01-17] MEDS: Levofloxacin 750 MG/150 ML 750 MG/150 ML BAG IVPB SCH (09:36)
[2018-01-17 10:39] VITALS: BP 115/77
--- NOTE | 2018-01-17 11:10 | Discharge Summary ---
- NOTES TO OUTPATIENT PROVIDER Notes to Outpatient Provider: Patient initially hospitalized with acute abdominal pain. MRI of the abdomen showed abnormalities in her gallbladder region but she was having pain mainly in the left upper quadrant and lower rib cage. Chest x-ray showed left lower lobe pneumonia. She was started on antibiotics for this. She also underwent upper GI endoscopy which did not show any acute abnormalities. She is clinically stable to be discharged home on oral antibiotics to complete treatment for pneumonia. Orders not resulted at time of discharge: Pending orders 01/16/18 14:51 Surgical Pathology [PTH] Routine 01/16/18 16:32 Culture,Blood [BC] Stat Culture,Blood,Additional [BC] Stat 01/17/18 10:11 CT chest w/o contrast [CT chest wo con] [CT] Stat 01/18/18 04:00 Basic Metabolic Panel AM 0400 Complete Blood Count [HEME] AM 0400 Date of Encounter: 01/17/18 Time of Encounter: 10:30 - Discharge Diagnosis (1) Pneumonia Priority: Primary Status: Acute Qualifiers: Pneumonia type: due to unspecified organism Laterality: left Lung location: lower lobe of lung Qualified Code(s): J18.1 - Lobar pneumonia, unspecified organism (2) Left upper quadrant abdominal pain of unknown etiology Priority: Secondary Status: Acute (3) Morbid obesity with BMI of 50.0-59.9, adult Priority: Secondary Status: Chronic (4) Status post laparoscopic cholecystectomy Priority: Secondary Status: Acute Hospital course: Ms. Muñoz is a 27 year old female patient with history of migraine disorder, seizure disorder and prior cholecystectomy was hospitalized here with acute abdominal pain mainly in the left upper quadrant. MRI of the abdomen was done per surgery recommendations and showed possibly contained cystic duct leak with stones and residual gallbladder or secondary glaucoma gallbladder with stones. She was having pain mainly in the left upper quadrant and lower rib cage. Chest x-ray showed possible left lower lobe pneumonia. She was started on antibiotics for this. She also underwent upper GI endoscopy which did not show any acute abnormalities. She is clinically stable to be discharged home on oral antibiotics to complete treatment for pneumonia. Discharge discussed with: patient, family, nurse - Time Spent with Patient Total time spent providing and/or coordinating discharge services: Greater than 30 minutes (35 min) - Discharge Medications Prescriptions: levoFLOXacin [Levaquin] 750 mg PO DAILY #6 tablet Oxycodone HCl/Acetaminophen [Percocet 5-325 mg Tablet] 1 each PO Q6H 5 Days #14 tablet Home Medications: Omeprazole [PriLOSEC] 40 mg PO DAILY 08/26/17 [History] Phentermine HCl [Adipex-P] 37.5 mg PO DAILY 01/15/18 [History] Oxycodone HCl/Acetaminophen [Percocet 5-325 mg Tablet] 1 each PO Q6H 5 Days #14 tablet 01/17/18 [Rx] levoFLOXacin [Levaquin] 750 mg PO DAILY #6 tablet 01/17/18 [Rx] Allergies/Adverse Reactions: 3 Allergy/AdvReac Type Severity Reaction Status Date / Time cephalexin [From Keflex] Allergy Swelling Verified 08/26/17 13:04 of Lip/Tongue/Throat egg Allergy Hives Verified 08/26/17 13:03 Date of admission: 01/15/18 16:05 Primary care physician: Monico Guzmán CNP Consults: 01/16/18 10:58 Consult to Gastroenterology [CONS] Routine Consulting Provider: Gastroenterology Claudia Reason for Consult: LUQ pain s/p cholecystectomy Time Notified: 10:59 Call Completed: Yes Discharging clinician: Jez Weems Anticipated date of discharge: 01/17/18 - Constitutional Vitals: Temp Pulse Resp BP Pulse Ox 98.6 F 86 15 115/77 97 01/17/18 10:38 01/17/18 10:38 01/17/18 10:38 01/17/18 10:38 01/17/18 10:38 General appearance: Present: cooperative, mild distress, A&O X 3, morbidly obese , pleasant, answers questions appropriately - Neck Neck exam general surgery: Present: supple, trachea midline. Absent: lymphadenopathy - Respiratory Respiratory exam: Present: chest wall tenderness (left lower chest), CTAB. Absent: accessory muscle use, rales, rhonchi, wheezes - Cardiovascular Cardiovascular exam: Present: RRR, +S1, +S2. Absent: diastolic murmur, gallop, rubs, systolic murmur - Extremities Exam Extremities exam: Present: warm, radial pulses palpable and symmetrical. Absent : calf tenderness, cyanotic, pedal edema - Neurological Exam Neurological exam: Present: CN II-XII intact, oriented X3, no focal deficits. Absent: facial droop, speech deficit - Patient Status Disposition: Home, Self-Care Condition: Good Functional capacity at discharge: independent ambulation Overall status at discharge: patient is progressing back to baseline - Discharge Instructions Instructions: Acute Abdominal Pain (DC) Follow Up With: Monico Guzmán CNP [Primary Care Provider] - (in 1week) - Diet and Activity Activity: increase activity as tolerated Diet: low fat, low cholesterol, low salt diet
== END 2018-01-17 11:57 | disposition home or self-care (01) ==
LOC: 3ANU 11:37 → EMEROO 11:37 → SUATTDRO 16:05 → 3ANU 16:35
PROVIDERS: ADMIT General Practice; ATTEND Internal Medicine
PROC: ENDOEBX (2018-01-16 13:30)

== ENCOUNTER 2019-05-19 16:12 | Observation (INO) ==
[2019-05-19] MEDS ORDERED: *HR* FentaNYL (PF) 100 MCG/2 ML VIAL IVP ONE ×2 (16:30→18:01)
[2019-05-19] MEDS ORDERED: Ondansetron 4 MG/2 ML VIAL IVP ONE ×2 (16:30→21:37)
[2019-05-19 16:55] LABS: Bilirubin,Urine Negative (Negative); Blood,Urine Negative (Negative); Clarity,Urine Clear (Clear); Color,Urine Yellow (Yellow); Glucose,Urine (UA) Normal (Normal); Ketones,Urine Negative (Negative); Leukocyte Esterase,Urine Negative (Negative); Nitrite,Urine Negative (Negative); Protein,Urine Negative (Neg-Trace); Urobilinogen,Urine Normal (Normal)
[2019-05-19] MEDS ORDERED: Ondansetron ODT 4 MG TAB.RAPDIS SL ONE (17:15)
[2019-05-19] MEDS ORDERED: *HR* FentaNYL (PF) 100 MCG/2 ML VIAL IM ONE ×2 (17:15→18:15)
--- NOTE | 2019-05-19 17:40 | Emergency Department Note ---
Disposition Clinical Impression: Umbilical hernia Qualifiers: Obstruction and gangrene presence: without obstruction or gangrene Qualified Code(s): K42.9 - Umbilical hernia without obstruction or gangrene Disposition: Still a Patient Condition: Good Referrals: Monico Guzmán CNP [Primary Care Provider] - Forms: ED Satisfaction Letter, Work/School Release Time of Disposition: 20:55 General Adult HPI - General Chief complaint: ED Abdominal Pain Stated complaint: umbillical hernia is hurtin so bad Time Seen by Provider: 05/19/19 16:23 Source: patient Mode of arrival: ambulatory Limitations: no limitations Nursing Notes Reviewed: Yes Vital Signs Reviewed: Yes - History of Present Illness HPI Narrative: 28-year-old female with significant past medical history of previous volvulus an umbilical hernia presenting to the emergency department chief complaint of periumbilical abdominal pain radiating into her left side. Patient states she believes that something is wrong with her umbilical hernia. Over the past 3 days she has had intermittent abdominal pain in this area but since 6:30 this morning the pain has been constant and so bad she cannot move. She denies any recent fevers or illnesses. Denies any chest pain or shortness of breath. She states she has been having loose stools over the past 3 days with 4-5 loose, watery bowel movements. Denies any blood in her stool. Denies any vomiting. Pain Scale: 9 - Related Data Home Medications Medication Instructions Recorded Confirmed Omeprazole [PriLOSEC] 40 mg PO DAILY 08/26/17 06/05/18 Previous Rx's Medication Instructions Recorded Clindamycin [Cleocin] 150 mg PO Q6HR #40 capsule 06/05/18 Tramadol HCl [Ultram] 50 mg PO QID PRN 3 Days #10 tab 06/05/18 Bisacodyl [Dulcolax] 10 mg PO BID #60 tablet 07/09/18 Allergies Allergy/AdvReac Type Severity Reaction Status Date / Time cephalexin [From Keflex] Allergy Swelling Verified 06/05/18 08:19 of Lip/Tongue/Throat egg Allergy Hives Verified 06/05/18 08:19 All systems ED: reviewed and negative except as stated. Constitutional: Denies: fever Eyes: Reports: as per HPI ENT ED: Reports: as per HPI Cardiovascular: Denies: chest pain Respiratory: Denies: dyspnea Gastrointestinal: Reports: abdominal pain, diarrhea Genitourinary: Reports: as per HPI Musculoskeletal: Reports: as per HPI Integumentary: Reports: as per HPI Neurological: Reports: as per HPI Psychiatric: Reports: as per HPI Endocrine: Reports: as per HPI Hematological/Lymphatic: Reports: as per HPI Allergic/Immunologic: Reports: as per HPI Past Medical History - Past Medical History Attestation: Yes The following information was validated with the patient. Medical history: Reports: migraine, seizures Surgical history: Reports: Psychiatric history: Reports: anxiety EXTERNAL GRINDER history: Reports: bilateral tubal ligation - Social History Smoking Status: Current every day smoker Smokeless Tobacco Status: No Alcohol use: Reports: none Drug use: Reports: none Physical Exam - General Limitations: no limitations General appearance: alert - Head Head exam: atraumatic, normocephalic, normal inspection - Eye Eye exam: Absent: scleral icterus - ENT ENT exam: mucous membranes moist - Neck Neck exam: Present: full ROM - Chest Chest inspection: Present: symmetric chest wall rise - Respiratory Respiratory exam: Present: normal lung sounds bilaterally. Absent: respiratory distress, wheezes - Cardiovascular Cardiovascular exam: Present: regular rate, normal rhythm, normal heart sounds - Abdominal Exam Abdominal exam: Present: tenderness (Periumbilical, radiating into the left abdomen. Umbilical hernia felt and unable to be reduced), guarding, rebound. Absent: rigidity - Extremities Exam Extremities exam: Present: full ROM - Neurological Exam Neurological exam: Present: alert, oriented X3 - Psychiatric Psychiatric exam: Present: anxious - Skin Skin exam: Present: warm Course Course Narrative: 28-year-old female presenting for periumbilical abdominal pain radiating to her left side. In the room patient is anxious but hemodynamically stable. Her physical exam is significant for an umbilical hernia that is unable to be reduced and is slightly hard. No discoloration or bruising around the site. Concern for possible incarcerated hernia. We will obtain basic laboratory analysis and perform a CT of the abdomen and pelvis. Disposition pending. Patient agrees with this plan. - Reevaluation(s) Reevaluation #1: Laboratory analysis within normal limits. Urine analysis within normal limits. CT of abdomen and pelvis concerning for hernia containing bowel. Due to patient's pain level and CT scan concern for an incarcerated hernia. Surgery paged. It has been approximately 3-1/2 hours since surgery was initially paged. Surgeon on-call in a difficult case in the OR. Surgeon agrees to evaluate the patient once she leaves the OR. Patient remains alert and oriented 3 and hemodynamically stable. At this time will plan to sign the patient out to Dr. Noonan for further workup and evaluation pending surgery consultation. Vital Signs Temperature 98.3 F 05/19/19 16:14 Pulse Rate 73 05/19/19 16:14 Respiratory Rate 18 05/19/19 16:14 Blood Pressure 141/105 05/19/19 16:14 O2 Sat by Pulse Oximetry 96 05/19/19 16:14 Temperature 98.3 F 05/19/19 16:29 Pulse Rate 70 05/19/19 19:40 Respiratory Rate 18 05/19/19 16:29 Blood Pressure 127/76 05/19/19 19:40 O2 Sat by Pulse Oximetry 100 05/19/19 19:40 Oxygen Delivery Oxygen Delivery Room Air Medical Decision Making - Lab Data Result diagrams: 05/19/19 17:26 05/19/19 17:26 Lab Results 05/19/19 05/19/19 05/19/19 Range/Units 16:37 16:42 17:26 WBC 8.4 (4.3-11.1) K/mcL RBC 5.11 H (3.82-4.97) M/mcL Hgb 12.8 (11.5-15.4) g/dL Hct 40.9 (35.3-44.9) % MCV 80.0 L (83.0-100.0) fL MCH 25.0 L (28.0-33.3) pg MCHC 31.3 L (31.6-35.5) g/dL RDW 14.6 H (11.5-14.5) % Plt Count 273 (140-400) K/mcL MPV 10.6 (9.4-12.4) fL Immature Gran % 0.2 (0-4) % Seg Neutrophils % 64.4 % Lymphocytes % 25.4 % Monocytes % 6.5 % Eosinophils % 3.1 % Basophils % 0.4 % Neutrophils # 5.4 (1.6-8.9) K/mcL Lymphocytes # 2.1 (0.6-4.6) K/mcL Monocytes # 0.6 (0.0-1.3) K/mcL Eosinophils # 0.3 (0.0-0.6) K/mcL Basophils # 0.0 (0.0-0.2) K/mcL Sodium (136-145) mEq/L Potassium (3.5-5.1) mEq/L Chloride (98-107) mEq/L Carbon Dioxide (23-29) mEq/L BUN (6-20) mg/dL Creatinine (0.60-1.20) mg/dL Est GFR ( Amer) (> 60) Est GFR (Non-Af Amer) (> 60) BUN/Creatinine Ratio (6-26) Glucose (70-105) mg/dL Calculated Osmolality (280-300) Calcium (8.6-10.3) mg/dL Total Bilirubin (0.3-1.0) mg/dL Direct Bilirubin (0.0-0.2) mg/dL Indirect Bilirubin (0.0-1.2) mg/dL AST (13-39) Units/L ALT (7-52) Units/L Alkaline Phosphatase (34-104) Units/L Serum Total Protein (6.4-8.9) g/dL Albumin (3.5-5.7) g/dL Globulin (2.4-3.5) g/dL Albumin/Globulin Ratio (1.1-2.2) Lipase (11-82) Units/L Urine Color Yellow (Yellow) Urine Clarity Clear (Clear) Urine pH 7.0 (5.0-8.0) pH Units Ur Specific [place] 1.010 (1.010-1.025) Urine Protein Negative (Neg-Trace) mg/dL Urine Glucose (UA) Normal (Normal) mg/dL Urine Ketones Negative (Negative) mg/dL Urine Blood Negative (Negative) Urine Nitrite Negative (Negative) Urine Bilirubin Negative (Negative) Urine Urobilinogen Normal (Normal) mg/dL Ur Leukocyte Esterase Negative (Negative) Ur Culture Indicated? NO (NO) Urine Test Negative (Negative) 05/19/19 Range/Units 17:26 WBC (4.3-11.1) K/mcL RBC (3.82-4.97) M/mcL Hgb (11.5-15.4) g/dL Hct (35.3-44.9) % MCV (83.0-100.0) fL MCH (28.0-33.3) pg MCHC (31.6-35.5) g/dL RDW (11.5-14.5) % Plt Count (140-400) K/mcL MPV (9.4-12.4) fL Immature Gran % (0-4) % Seg Neutrophils % % Lymphocytes % % Monocytes % % Eosinophils % % Basophils % % Neutrophils # (1.6-8.9) K/mcL Lymphocytes # (0.6-4.6) K/mcL Monocytes # (0.0-1.3) K/mcL Eosinophils # (0.0-0.6) K/mcL Basophils # (0.0-0.2) K/mcL Sodium 139 (136-145) mEq/L Potassium 4.8 (3.5-5.1) mEq/L Chloride 106 (98-107) mEq/L Carbon Dioxide 28 (23-29) mEq/L BUN 8 (6-20) mg/dL Creatinine 0.60 (0.60-1.20) mg/dL Est GFR ( Amer) > 60 (> 60) Est GFR (Non-Af Amer) > 60 (> 60) BUN/Creatinine Ratio 13 (6-26) Glucose 89 (70-105) mg/dL Calculated Osmolality 286 (280-300) Calcium 9.4 (8.6-10.3) mg/dL Total Bilirubin 0.4 (0.3-1.0) mg/dL Direct Bilirubin 0.1 (0.0-0.2) mg/dL Indirect Bilirubin 0.3 (0.0-1.2) mg/dL AST 17 (13-39) Units/L ALT 19 (7-52) Units/L Alkaline Phosphatase 72 (34-104) Units/L Serum Total Protein 7.2 (6.4-8.9) g/dL Albumin 4.1 (3.5-5.7) g/dL Globulin 3.1 (2.4-3.5) g/dL Albumin/Globulin Ratio 1.3 (1.1-2.2) Lipase 14 (11-82) Units/L Urine Color (Yellow) Urine Clarity (Clear) Urine pH (5.0-8.0) pH Units Ur Specific [place] (1.010-1.025) Urine Protein (Neg-Trace) mg/dL Urine Glucose (UA) (Normal) mg/dL Urine Ketones (Negative) mg/dL Urine Blood (Negative) Urine Nitrite (Negative) Urine Bilirubin (Negative) Urine Urobilinogen (Normal) mg/dL Ur Leukocyte Esterase (Negative) Ur Culture Indicated? (NO) Urine Test (Negative) Attestation Statement - Attestation Attestation: Patient has evidence of ventral wall hernia examination, she is morbidly obese, it is difficult to reduce this at this time secondary to the patient's pain and significant obesity. Case has been discussed with general surgery however there is a delay in getting a surgeon to see the patient secondary to him being in surgery. They are going to evaluate the patient as soon as a surgery is over. Case at this time has been turned over to Dr. Ceja. Patient shows no evidence of severe infection or gangrenous bowel. The patient at this time is stable here in the emergency room.
[2019-05-19 17:47] LABS: Basophils % 0.4 %; Eosinophils # 0.3 K/mcL (0.0-0.6); Eosinophils % 3.1 %; Hematocrit 40.9 % (35.3-44.9); Hemoglobin 12.8 g/dL (11.5-15.4); Immature Granulocytes % 0.2 % (0-4); Lymphocytes # 2.1 K/mcL (0.6-4.6); Lymphocytes % 25.4 %; Mean Corpuscular HGB Conc 31.3 g/dL (31.6-35.5); Mean Platelet Volume 10.6 fL (9.4-12.4); Monocytes # 0.6 K/mcL (0.0-1.3); Monocytes % 6.5 %; Neutrophils # 5.4 K/mcL (1.6-8.9); Platelet Count 273 K/mcL (140-400); Red Blood Count 5.11 M/mcL (3.82-4.97); Red Cell Distribution Width 14.6 % (11.5-14.5); Segmented Neutrophils % 64.4 %; White Blood Count 8.4 K/mcL (4.3-11.1)
[2019-05-19 18:04] LABS: Alanine Aminotransferase 19 Units/L (7-52); Albumin 4.1 g/dL (3.5-5.7); Albumin/Globulin Ratio 1.3 (1.1-2.2); Alkaline Phosphatase 72 Units/L (34-104); Aspartate Amino Transferase 17 Units/L (13-39); BUN/Creatinine Ratio 13 (6-26); Bilirubin,Direct 0.1 mg/dL (0.0-0.2); Bilirubin,Indirect 0.3 mg/dL (0.0-1.2); Bilirubin,Total 0.4 mg/dL (0.3-1.0); Blood Urea Nitrogen 8 mg/dL (6-20); Calcium 9.4 mg/dL (8.6-10.3); Carbon Dioxide 28 mEq/L (23-29); Chloride 106 mEq/L (98-107); Globulin 3.1 g/dL (2.4-3.5); Glucose 89 mg/dL (70-105); Lipase 14 Units/L (11-82); Osmolality,Calculated 286 (280-300); Potassium 4.8 mEq/L (3.5-5.1); Sodium 139 mEq/L (136-145); Total Protein 7.2 g/dL (6.4-8.9); eGFR For African Americans > 60 (> 60); eGFR For Non-African Americans > 60 (> 60)
[2019-05-19] MEDS ORDERED: *HR* HYDROmorphone (PF) 1 MG/ML SYRINGE IVP ONE ×2 (19:26→20:14)
--- NOTE | 2019-05-19 21:07 | Emergency Department Note ---
Disposition Clinical Impression: Umbilical hernia Qualifiers: Obstruction and gangrene presence: without obstruction or gangrene Qualified Code(s): K42.9 - Umbilical hernia without obstruction or gangrene Disposition: Still a Patient Condition: Good Referrals: Monico uGzmán DIAL MOUNTER [Primary Care Provider] - Forms: ED Satisfaction Letter, Work/School Release General Adult HPI - General Chief complaint: ED Abdominal Pain Stated complaint: umbillical hernia is hurtin so bad Time Seen by Provider: 05/19/19 16:23 Source: patient Mode of arrival: ambulatory Limitations: no limitations - History of Present Illness HPI Narrative: Patient signed out by Dr. Godwin and Dr. Jones pending surgery evaluation. Please see their complete H&P, ROS, assessment and plan for full documentation. Pain Scale: 9 - Related Data Home Medications Medication Instructions Recorded Confirmed Omeprazole [PriLOSEC] 40 mg PO DAILY 08/26/17 06/05/18 Previous Rx's Medication Instructions Recorded Clindamycin [Cleocin] 150 mg PO Q6HR #40 capsule 06/05/18 Tramadol HCl [Ultram] 50 mg PO QID PRN 3 Days #10 tab 06/05/18 Bisacodyl [Dulcolax] 10 mg PO BID #60 tablet 07/09/18 Allergies Allergy/AdvReac Type Severity Reaction Status Date / Time cephalexin [From Keflex] Allergy Swelling Verified 06/05/18 08:19 of Lip/Tongue/Throat egg Allergy Hives Verified 06/05/18 08:19 Constitutional: Denies: fever Eyes: Reports: as per HPI ENT ED: Reports: as per HPI Cardiovascular: Denies: chest pain Respiratory: Denies: dyspnea Gastrointestinal: Reports: abdominal pain, diarrhea Genitourinary: Reports: as per HPI Musculoskeletal: Reports: as per HPI Integumentary: Reports: as per HPI Neurological: Reports: as per HPI Psychiatric: Reports: as per HPI Endocrine: Reports: as per HPI Hematological/Lymphatic: Reports: as per HPI Allergic/Immunologic: Reports: as per HPI Past Medical History - Past Medical History Medical history: Reports: migraine, seizures Surgical history: Reports: Psychiatric history: Reports: anxiety 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 - Social History Smoking Status: Current every day smoker Smokeless Tobacco Status: No Alcohol use: Reports: none Drug use: Reports: none Physical Exam - General Limitations: no limitations General appearance: alert Course Vital Signs Temperature 98.3 F 05/19/19 16:14 Pulse Rate 73 05/19/19 16:14 Respiratory Rate 18 05/19/19 16:14 Blood Pressure 141/105 05/19/19 16:14 O2 Sat by Pulse Oximetry 96 05/19/19 16:14 Temperature 98.3 F 05/19/19 16:29 Pulse Rate 70 05/19/19 19:40 Respiratory Rate 18 05/19/19 16:29 Blood Pressure 127/76 05/19/19 19:40 O2 Sat by Pulse Oximetry 100 05/19/19 19:40 Oxygen Delivery Oxygen Delivery Room Air Medical Decision Making - MDM Narrative Medical decision making narrative: Patient signed out by Dr. Godwin. Please see their complete Assessment and plan for ED course. Imaging and labs reviewed. Concerned for incarcerated umbilical hernia. Has had multiple doses of pain medications. Surgery has been called and will evaluate. Pending surgery recommendations. Patient currently received morphine and hemodynamically stable at this time. - Medical Records Medical records reviewed: Yes I reviewed the patient's medical records. - Lab Data Lab results reviewed: Yes I reviewed the patient's lab results. Result diagrams: 05/19/19 17:26 05/19/19 17:26 Lab Results 05/19/19 05/19/19 05/19/19 Range/Units 16:37 16:42 17:26 WBC 8.4 (4.3-11.1) K/mcL RBC 5.11 H (3.82-4.97) M/mcL Hgb 12.8 (11.5-15.4) g/dL Hct 40.9 (35.3-44.9) % MCV 80.0 L (83.0-100.0) fL MCH 25.0 L (28.0-33.3) pg MCHC 31.3 L (31.6-35.5) g/dL RDW 14.6 H (11.5-14.5) % Plt Count 273 (140-400) K/mcL MPV 10.6 (9.4-12.4) fL Immature Gran % 0.2 (0-4) % Seg Neutrophils % 64.4 % Lymphocytes % 25.4 % Monocytes % 6.5 % Eosinophils % 3.1 % Basophils % 0.4 % Neutrophils # 5.4 (1.6-8.9) K/mcL Lymphocytes # 2.1 (0.6-4.6) K/mcL Monocytes # 0.6 (0.0-1.3) K/mcL Eosinophils # 0.3 (0.0-0.6) K/mcL Basophils # 0.0 (0.0-0.2) K/mcL Sodium (136-145) mEq/L Potassium (3.5-5.1) mEq/L Chloride (98-107) mEq/L Carbon Dioxide (23-29) mEq/L BUN (6-20) mg/dL Creatinine (0.60-1.20) mg/dL Est GFR ( Amer) (> 60) Est GFR (Non-Af Amer) (> 60) BUN/Creatinine Ratio (6-26) Glucose (70-105) mg/dL Calculated Osmolality (280-300) Calcium (8.6-10.3) mg/dL Total Bilirubin (0.3-1.0) mg/dL Direct Bilirubin (0.0-0.2) mg/dL Indirect Bilirubin (0.0-1.2) mg/dL AST (13-39) Units/L ALT (7-52) Units/L Alkaline Phosphatase (34-104) Units/L Serum Total Protein (6.4-8.9) g/dL Albumin (3.5-5.7) g/dL Globulin (2.4-3.5) g/dL Albumin/Globulin Ratio (1.1-2.2) Lipase (11-82) Units/L Urine Color Yellow (Yellow) Urine Clarity Clear (Clear) Urine pH 7.0 (5.0-8.0) pH Units Ur Specific [place] 1.010 (1.010-1.025) Urine Protein Negative (Neg-Trace) mg/dL Urine Glucose (UA) Normal (Normal) mg/dL Urine Ketones Negative (Negative) mg/dL Urine Blood Negative (Negative) Urine Nitrite Negative (Negative) Urine Bilirubin Negative (Negative) Urine Urobilinogen Normal (Normal) mg/dL Ur Leukocyte Esterase Negative (Negative) Ur Culture Indicated? NO (NO) Urine Test Negative (Negative) 05/19/19 Range/Units 17:26 WBC (4.3-11.1) K/mcL RBC (3.82-4.97) M/mcL Hgb (11.5-15.4) g/dL Hct (35.3-44.9) % MCV (83.0-100.0) fL MCH (28.0-33.3) pg MCHC (31.6-35.5) g/dL RDW (11.5-14.5) % Plt Count (140-400) K/mcL MPV (9.4-12.4) fL Immature Gran % (0-4) % Seg Neutrophils % % Lymphocytes % % Monocytes % % Eosinophils % % Basophils % % Neutrophils # (1.6-8.9) K/mcL Lymphocytes # (0.6-4.6) K/mcL Monocytes # (0.0-1.3) K/mcL Eosinophils # (0.0-0.6) K/mcL Basophils # (0.0-0.2) K/mcL Sodium 139 (136-145) mEq/L Potassium 4.8 (3.5-5.1) mEq/L Chloride 106 (98-107) mEq/L Carbon Dioxide 28 (23-29) mEq/L BUN 8 (6-20) mg/dL Creatinine 0.60 (0.60-1.20) mg/dL Est GFR ( Amer) > 60 (> 60) Est GFR (Non-Af Amer) > 60 (> 60) BUN/Creatinine Ratio 13 (6-26) Glucose 89 (70-105) mg/dL Calculated Osmolality 286 (280-300) Calcium 9.4 (8.6-10.3) mg/dL Total Bilirubin 0.4 (0.3-1.0) mg/dL Direct Bilirubin 0.1 (0.0-0.2) mg/dL Indirect Bilirubin 0.3 (0.0-1.2) mg/dL AST 17 (13-39) Units/L ALT 19 (7-52) Units/L Alkaline Phosphatase 72 (34-104) Units/L Serum Total Protein 7.2 (6.4-8.9) g/dL Albumin 4.1 (3.5-5.7) g/dL Globulin 3.1 (2.4-3.5) g/dL Albumin/Globulin Ratio 1.3 (1.1-2.2) Lipase 14 (11-82) Units/L Urine Color (Yellow) Urine Clarity (Clear) Urine pH (5.0-8.0) pH Units Ur Specific [place] (1.010-1.025) Urine Protein (Neg-Trace) mg/dL Urine Glucose (UA) (Normal) mg/dL Urine Ketones (Negative) mg/dL Urine Blood (Negative) Urine Nitrite (Negative) Urine Bilirubin (Negative) Urine Urobilinogen (Normal) mg/dL Ur Leukocyte Esterase (Negative) Ur Culture Indicated? (NO) Urine Test (Negative) - Radiology Data Radiology results reviewed: Yes I reviewed the patient's radiology results. Abdomen/Pelvis CT 05/19/19 17:59 IMPRESSION: 1. Ventral hernia containing transverse colon however no evidence of bowel obstruction or strangulation. 2. Well-visualized appendix which appears normal. 3. Diffuse fatty infiltration of the liver but no focal disease. Status post cholecystectomy. D/ / 05/19/2019 18:05:29 Faith Novak MD / jaxson Interpreting Provider: Faith Novak MD
[2019-05-19] MEDS ORDERED: *HR* HYDROmorphone 2 MG/ML SYRINGE IVP ONE (21:37)
[2019-05-19] MEDS ORDERED: Morphine PCA 30 MG/ 30 ML 30 ML PCA.VIAL IVC PRN (21:38)
[2019-05-19] MEDS: Nicotine 21 MG PATCH.TD24 TD SCH (21:53)
[2019-05-19] MEDS: 0.9 % Sodium Chloride 1,000 ML IVC SCH (22:20)
[2019-05-19] MEDS ORDERED: 0.9 % Sodium Chloride 1,000 ML ONE (22:45)
[2019-05-19] MEDS ORDERED: Ondansetron 4 MG/2 ML VIAL IVP PRN (23:09)
--- NOTE | 2019-05-19 23:59 | Acute Care Surgery H&P ---
Date of Encounter: 05/19/19 Time of Encounter: 23:45 Assessment and Plan (1) Incarcerated umbilical hernia Current Visit: Yes Status: Acute The assessment and plan as outlined above was discussed with the patient and/or family members who expressed understanding and agreement. All questions were answered. Discussed with patient the diagnosis of ventral hernia. Discussed with patient treatment options which include laparoscopic or open surgery for repair or no treatment with observation. Pt opts for lap ventral herniorrhaphy. Procedure, risks and benefits are discussed with patient. Possible risks and complications include but are not limited to bleeding, infection, injury to small or large bowel. The patient understands. Surgery is scheduled. History of Present Illness Chief complaint: abdominal pain HPI: Ms. Muñoz is a 28 year old obese female pt who presents to [facility] ED c/o severe abdominal pain. Pt reports pain is predominantly in the umbilicus.. Pain radiates to. However, pt also c/o pain in BLQ . Pt reports hernia has been there for years and the pain has been present for days. She states that the chronic, intermittent low grade pain worsened to the point of intolerence today. Now, the pain is constant and severe. Pt reports nausea and vomiting. Pt denies hematemesis or coffee ground emesis. Pt reports flatus and BM. BM have become loose today. Pt denies hematochezia or melena. Reports decreased appetite. Denies fever. Past Med Surg Social Fam HX - Past Medical History Medical history: migraine, seizures Additional medical history: abdominal hernia Psychiatric history: anxiety - Past Surgical History Surgical History: Additional surgical history: tubal - Social History Smoking Status: Current every day smoker Smokeless Tobacco Status: No Alcohol use: none Drug use: none Medications and Allergies Omeprazole [PriLOSEC] 40 mg PO DAILY 08/26/17 [History] Clindamycin [Cleocin] 150 mg PO Q6HR #40 capsule 06/05/18 [Rx] Tramadol HCl [Ultram] 50 mg PO QID PRN 3 Days #10 tab 06/05/18 [Rx] Bisacodyl [Dulcolax] 10 mg PO BID #60 tablet 07/09/18 [Rx] Allergy/AdvReac Type Severity Reaction Status Date / Time cephalexin [From Keflex] Allergy Swelling Verified 06/05/18 08:19 of Lip/Tongue/Throat egg Allergy Hives Verified 06/05/18 08:19 Review of Systems All systems PM: The remainder of the systems were reviewed and are negative - Constitutional anorexia, no chills, no fatigue, no fever(s), no night sweats, no weakness - EENT Nose, mouth and throat: no dizziness, no dry mouth, no nasal congestion, no nasal discharge, no sinus pain, no sinus pressure, no sore throat - Cardiovascular no chest pain, no diaphoresis, no dyspnea, no edema - Respiratory no cough, no dyspnea, no wheezing - Gastrointestinal abdominal pain, bloating, change in bowel habits, cramping, diarrhea, nausea, vomiting, no constipation, no melena - Genitourinary Genitourinary: no difficulty urinating, no dysuria, no hematuria, no urinary frequency - Musculoskeletal no abnormal gait, no joint swelling, no limited range of motion, no neck pain - Integumentary no dry skin, no pruritus, no rash, no wounds, no jaundice - Neurological no confusion, no dizziness, no focal weakness, no weakness - Psychiatric no anxiety, no depression - Endocrine no fatigue - Hematologic/Lymphatic no easy bleeding, no easy bruising General Surgery Exam Initial Vital Signs Temp Pulse Resp BP Pulse Ox 98.3 F 73 18 141/105 96 05/19/19 16:14 05/19/19 16:14 05/19/19 16:14 05/19/19 16:14 05/19/19 16:14 - General physical appearance well developed, well nourished, severe distress, severe pain. negative: jaundice - Eyes PERRL, normal ocular movement. negative: icteric - ENT no congestion, dry mucosa. negative: nasal discharge - Neck no masses, trachea midline, no lymphadectomy, no venous distension - Respiratory normal respiratory effort, clear to auscultation - Cardiovascular Cardiovascular exam: Present: RRR. Absent: JVD - Abdomen Abdomen general surgery: Present: bowel sounds present, distended, tender, guarding, rebound, rigid. Absent: tympanic Abdominal Tenderness: Present: suprapubic, diffusely - Genitourinary Present: normal external genitalia - Integumentary Integumentary general surgery: Present: warm and dry - Neurologic Present: CN 2-12 grossly intact, normal coordination - Musculoskeletal Present: normal posture - Psychiatric Psychiatric general surgery: Present: A&Ox3, appropriate Results - Labs 05/19/19 17:26 05/19/19 17:26 Abnormal lab results RBC 5.11 M/mcL (3.82-4.97) H 05/19/19 17: MCV 80.0 fL (83.0-100.0) L 05/19/19 17: MCH 25.0 pg (28.0-33.3) L 05/19/19 17: MCHC 31.3 g/dL (31.6-35.5) L 05/19/19 17: RDW 14.6 % (11.5-14.5) H 05/19/19 17:26 Diabetes panel 05/19/19 Range/Units 17: Sodium 139 (136-145) mEq/L Potassium 4.8 (3.5-5.1) mEq/L Chloride 106 (98-107) mEq/L Carbon Dioxide 28 (23-29) mEq/L BUN 8 (6-20) mg/dL Creatinine 0.60 (0.60-1.20) mg/dL Glucose 89 (70-105) mg/dL Calcium 9.4 (8.6-10.3) mg/dL AST 17 (13-39) Units/L ALT 19 (7-52) Units/L Alkaline Phosphatase 72 (34-104) Units/L Albumin 4.1 (3.5-5.7) g/dL Calcium panel 05/19/19 Range/Units 17: Calcium 9.4 (8.6-10.3) mg/dL Albumin 4.1 (3.5-5.7) g/dL Pituitary panel 05/19/19 Range/Units 17:26 Sodium 139 (136-145) mEq/L Potassium 4.8 (3.5-5.1) mEq/L Chloride 106 (98-107) mEq/L Carbon Dioxide 28 (23-29) mEq/L BUN 8 (6-20) mg/dL Creatinine 0.60 (0.60-1.20) mg/dL Glucose 89 (70-105) mg/dL Calcium 9.4 (8.6-10.3) mg/dL Adrenal panel 05/19/19 Range/Units 17:26 Sodium 139 (136-145) mEq/L Potassium 4.8 (3.5-5.1) mEq/L Chloride 106 (98-107) mEq/L Carbon Dioxide 28 (23-29) mEq/L BUN 8 (6-20) mg/dL Creatinine 0.60 (0.60-1.20) mg/dL Glucose 89 (70-105) mg/dL Calcium 9.4 (8.6-10.3) mg/dL Total Bilirubin 0.4 (0.3-1.0) mg/dL AST 17 (13-39) Units/L ALT 19 (7-52) Units/L Alkaline Phosphatase 72 (34-104) Units/L Albumin 4.1 (3.5-5.7) g/dL All other labs normal. - Imaging CT scan - abdomen: image reviewed (+incarcerated [facility]) CT scan - chest: image reviewed
[2019-05-20] MEDS: Nicotine 21 MG PATCH.TD24 TD SCH (10:28)
--- NOTE | 2019-05-20 11:30 | Anesthesia Evaluation PreOp ---
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) Other Medical History: GERD, Other (obesity BMI=65.6) Anesthesia History: No Prior Anesthetic Complications, Past Anesthesia Test: Negative (05/19/2019) Alcohol Use: none Drug use: none Medications and Allergies Cholecalciferol (D-3) [Vitamin D] 1,000 unit PO DAILY 05/20/19 [History] Omeprazole [PriLOSEC] 20 mg PO DAILY 05/20/19 [History] Sertraline [Zoloft] 25 mg PO DAILY 05/20/19 [History] Allergy/AdvReac Type Severity Reaction Status Date / Time cephalexin [From Keflex] Allergy Swelling Verified 05/20/19 08:06 of Lip/Tongue/Throat egg Allergy Hives Verified 05/20/19 08:06 - Meds/Allergy Pre-op Review Medications Reviewed: Yes Allergies Reviewed: Yes Beta Blockers on Current Med List: No Anesthesia Results - Labs 05/19/19 17:26 05/19/19 17:26 Laboratory Tests 05/19/19 16:42 Urine Test Negative - Imaging EKG: report reviewed (05/31/2016 SINUS RHYTHM WITH SINUS ARRHYTHMIA) Anesthesia Exam Vital Signs/O2 Sat/Glucose, Most Recent Temp Pulse Resp BP Pulse Ox 98.3 F 66 15 127/76 95 05/20/19 10:12 05/20/19 10:12 05/20/19 10:12 05/20/19 10:12 05/20/19 10:12 Blood Glucose* 96 Height: 4'11''/1.5m Weight: 324 lbs/147.3 kg NPO (# of Hours): 8 Pain Scale: 6 (abdomen) Pain Scale Used: Numeric (1 - 10) - HEENT Pupil (Motor): EOMI Mallampati: III Teeth: Normal Oral Opening: Greater than 3 - VPK TEACHER LOC: Oriented VPK TEACHER Motor: Normal RUE, Normal LUE, Normal RLE, Normal LLE, Normal Face VPK TEACHER Sensory: Normal: RUE, LUE, RLE, LLE, Face - Cardiac Rhythm: Regular Murmur: None - Pulmonary Breath Sounds: bilateral Clear Respiratory Effort: Symmetrical Anesthesia Assess/Plan ASA Score: 4 Level of consciousness: Cooperative, Oriented, Tranquil Anesthetic Plan: General Monitoring Plan: Standard Monitors Recovery Plan: PACU
[2019-05-20] MEDS ORDERED: *HR* Propofol 200 MG/20 ML VIAL IVP ONE (12:23)
[2019-05-20] MEDS ORDERED: *HR* FentaNYL (PF) 100 MCG/2 ML VIAL ONE ×2 (12:23→14:09)
[2019-05-20] MEDS ORDERED: *HR* Midazolam HCl 2 MG/2 ML VIAL ONE ×2 (12:23→13:19)
[2019-05-20] MEDS ORDERED: Lidocaine -MPF 2% 2 ML VIAL ONE (12:26)
[2019-05-20] MEDS ORDERED: *HR* Succinylcholine 200 MG/10 ML VIAL IVP ONE (12:33)
[2019-05-20] MEDS ORDERED: *HR* Promethazine 25 MG/ML VIAL IVP PRN ×2 (13:12→16:39)
[2019-05-20] MEDS ORDERED: *HR* OxyCODONE Immed Rel 5 MG TABLET PO PRN (13:12)
[2019-05-20] MEDS ORDERED: Acetaminophen IV 1,000 MG/100 ML INFUS..BTL ONE (13:13)
[2019-05-20] MEDS ORDERED: Lidocaine HCL 4 ML Topical Solution (Laryng-O-Jet Kit Sterile Pak) TP ONE (13:18)
[2019-05-20] MEDS ORDERED: Clindamycin 600 MG/50 ML 600 MG/50 ML IV.SOLN IVPB ONE (13:33)
[2019-05-20] MEDS ORDERED: *HR* Rocuronium Bromide 50 MG/5 ML VIAL ONE (13:58)
[2019-05-20] MEDS ORDERED: Dexamethasone 4 MG/ML VIAL ONE (14:07)
[2019-05-20] MEDS ORDERED: Ondansetron 4 MG/2 ML VIAL ONE (14:07)
[2019-05-20] MEDS ORDERED: *HR* HYDROMORPHONE 2 MG/ML VIAL ONE (14:17)
[2019-05-20] MEDS ORDERED: Esmolol 100 MG/10 ML VIAL IVP ONE (14:31)
[2019-05-20] MEDS ORDERED: *HR* Metoprolol 5 MG/5 ML VIAL IVP ONE (14:56)
--- NOTE | 2019-05-20 15:37 | Operative Note ---
Date of procedure: 05/20/19 Pre-op diagnosis: incarcerated incisional hernia Post-op diagnosis: same Procedure: robotic ventral hernia repair with mesh Implants: none Complications: none Anesthesia: GETA Local Anesthetics: 0.5% Sensorcaine HCL SubQ (cc) Surgeon: Joao Hatfield Was there an post production assistant present: No Estimated blood loss (cc): 5 Specimen: none Condition: stable Disposition: PACU Procedure in Detail: The patient was brought into the operating room suite. Positioned supine. Mechanical DVT prophylaxis was applied. The patient underwent smooth induction of anesthesia. The patient was prepped and draped in the usual fashion. Preoperative antibiotics were given. A timeout was held identifying correct patient, pathology, procedure, and physician. I started by using the 5mm optiview to enter into the abdomen 2 finger breadths below the left costal margin. I then placed the remaining 8mm trocars under direct visualization along the left side of the abdomen before upsizing the 5mm port to an 8mm port. I I then docked the robot in the usual fashion, broke scrub, and went to the robotic console. I began by reduing the hernia contents. There was omentum and bowel. There was no injury to bowel. Afterwards I used the 2-0 v lock suture to reapproximate the fascia. I then anchored the fascia and sutured circumferentially. I then used the suture tacker to reinforce the mesh. The mesh adequately covered the hernia repair on all sides. This concluded the robotic portion of the procedure. I then scrubbed and returned to the operative field and closed all incisions with interrupted 4-0 monocryl sutures and sealed them with dermabond. The patient tolerated the proceudre and was escorted to PACU in stable condition.
[2019-05-20] MEDS: *HR* HYDROmorphone (PF) 1 MG/ML SYRINGE IVP PRN ×4 (15:40→16:00)
[2019-05-20] MEDS ORDERED: 0.9 % Sodium Chloride 1,000 ML IVC SCH (16:39)
[2019-05-20] MEDS ORDERED: Ondansetron 4 MG/2 ML VIAL IVP PRN (16:39)
[2019-05-20] MEDS: *HR* OxyCODONE Immed Rel 5 MG TABLET PO PRN (17:49)
[2019-05-20] MEDS: 0.9 % Sodium Chloride 1,000 ML IVC SCH ×2 (19:30→19:32)
[2019-05-20] MEDS ORDERED: traMADol 50 MG TABLET PO PRN (21:38)
[2019-05-21] MEDS: *HR* OxyCODONE Immed Rel 5 MG TABLET PO PRN ×2 (03:11→09:57)
[2019-05-21 07:51] VITALS: BP 105/69
[2019-05-21] MEDS ORDERED: Nicotine 21 MG PATCH.TD24 TD SCH (09:00)
--- NOTE | 2019-05-21 09:56 | Discharge Summary ---
<Gaviota Barber - Last Filed: 05/21/19 09:54> Date of Encounter: 05/21/19 Time of Encounter: 09:56 - Discharge Diagnosis (1) Incarcerated incisional hernia Priority: Primary Status: Resolved General Surgery Exam Initial Vital Signs Temp Pulse Resp BP Pulse Ox 98.3 F 73 18 141/105 96 05/19/19 16:14 05/19/19 16:14 05/19/19 16:14 05/19/19 16:14 05/19/19 16:14 - General physical appearance no distress, moderate pain (controlled), obese - Neck trachea midline - Respiratory normal expansion, normal respiratory effort - Cardiovascular Cardiovascular exam: Present: RRR - Abdomen Abdomen general surgery: Present: bowel sounds present, soft, tender (expected postoperative) - Incision Incision: Present: clean and dry, intact - Integumentary Integumentary general surgery: Present: warm and dry - Neurologic Present: normal coordination, normal sensation - Musculoskeletal Present: normal posture - Psychiatric Psychiatric general surgery: Present: A&Ox3 - Hospital Course Hospital course: Ms. Muñoz is a 28 year old female who presented on 05/20/2019 for abdominal pain. She was found to have an incarcerated incisional hernia. She was taken to the operating room on the same day where she underwent a robotic ventral hernia repair with mesh by Dr. Hatfield. She is relating avoiding without difficulty, tolerating a diet without nausea or vomiting, vital signs are stable, and she is afebrile. We will begin discharge planning to home with a follow-up in office in approximately 2 weeks. - Time Spent with Patient Total time spent providing and/or coordinating discharge services: - Discharge Medications Prescriptions: New Docusate Sodium [Colace] 100 mg PO BID PRN #30 capsule PRN Reason: Contstipation Ibuprofen 800 mg PO Q8H PRN #30 tablet PRN Reason: Postsurgical pain Ondansetron ODT [Zofran ODT] 4 mg SL Q4HR PRN #15 tab.rapdis PRN Reason: Postsurgical nausea Polyethylene Glycol 3350 [MiraLAX Powder Bulk 17.9 Oz] 1 scoop PO DAILY 30 Days #510 gm Lidocaine Patch [Lidoderm 5% patch] 1 each TP DAILY #15 adh..patch Continued Cholecalciferol (D-3) [Vitamin D] 1,000 unit PO DAILY Omeprazole [PriLOSEC] 20 mg PO DAILY Sertraline [Zoloft] 25 mg PO DAILY No Action Buprenorphine HCl/Naloxone HCl [Suboxone 8 mg-2 mg Sl Film] 1 each SL Home Medications: Cholecalciferol (D-3) [Vitamin D] 1,000 unit PO DAILY 05/20/19 [History] Omeprazole [PriLOSEC] 20 mg PO DAILY 05/20/19 [History] Sertraline [Zoloft] 25 mg PO DAILY 05/20/19 [History] Buprenorphine HCl/Naloxone HCl [Suboxone 8 mg-2 mg Sl Film] 1 each SL 05/21/19 [History] Docusate Sodium [Colace] 100 mg PO BID PRN #30 capsule 05/21/19 [Rx] Ibuprofen 800 mg PO Q8H PRN #30 tablet 05/21/19 [Rx] Lidocaine Patch [Lidoderm 5% patch] 1 each TP DAILY #15 adh..patch 05/21/19 [Rx] Ondansetron ODT [Zofran ODT] 4 mg SL Q4HR PRN #15 tab.rapdis 05/21/19 [Rx] Polyethylene Glycol 3350 [MiraLAX Powder Bulk 17.9 Oz] 1 scoop PO DAILY 30 Days #510 gm 05/21/19 [Rx] Allergies/Adverse Reactions: Allergy/AdvReac Type Severity Reaction Status Date / Time cephalexin [From Keflex] Allergy Swelling Verified 05/20/19 08:06 of Lip/Tongue/Throat egg Allergy Hives Verified 05/20/19 08:06 Date of admission: 05/19/19 21:49 Primary care physician: Monico Guzmán CNP Consults: 05/19/19 23:35 Consult to Nutrition [CONS] Routine Comment: Consulting Provider: NUTRITION Reason for Dietary Consult: MST Score Discharging clinician: Franklin Barber APRN-MIGUEL) Anticipated date of discharge: 05/21/19 Labs on day of discharge: Labs from last 24 hours 05/20/19 10:58 POC Glucose 96 - Impressions ITS Impressions Abdomen/Pelvis CT 05/19/19 17:59 IMPRESSION: 1. Ventral hernia containing transverse colon however no evidence of bowel obstruction or strangulation. 2. Well-visualized appendix which appears normal. 3. Diffuse fatty infiltration of the liver but no focal disease. Status post cholecystectomy. D/ / 05/19/2019 18:05:29 Faith Novak MD / jaxson Interpreting Provider: Faith Novak MD - Patient Status Disposition: Home, Self-Care Condition: Good Functional capacity at discharge: independent ambulation Overall status at discharge: patient is progressing back to baseline - Discharge Instructions Instructions: Laparoscopic Herniorrhaphy (DC) Follow Up With: Abraham Costa MD [Partnered Physician] - 06/09/19 8:30 am Additional Instructions: General Surgical Discharge Instructions 1. No pushing, pulling, or lifting greater than 15 lbs for 6 weeks. 2. You may remove your dressings and shower beginning today, but no tub baths, soaking, or swimming for 2 weeks. 3. No driving for one weeks unless otherwise specified and then you may resume driving when you are off narcotics and are safe to react in a car. 4. Apply ice 20 minutes every hour that you are awake to your abdomen and Take ibuprofen every 8 hours for discomfort. You can alternate this with 1000 mg acetaminophen so that you have medication every 4 hours. You will continue your previously prescribed suboxone. Apply lidocaine patch once daily if needed for discomfort and use your abdominal binder. 5. Take stool softeners (Colace) or a water based laxative (Miralax) while taking narcotics. You may hold for loose stools. 6. Report any fevers greater than 100.5F, increase abdominal discomfort, drainage that looks like pus, increased redness or pain at the surgical site, or any vomiting. 7. Report any pain in the calves, shortness of breath, or rapid heartbeat. 8. Follow-up in the office as directed. 9. If you were prescribed antibiotics, do not stop them without talking to your provider. - Diet and Activity Activity: increase activity as tolerated Diet: advance to your usual diet <Franklin Jiménez F - Last Filed: 05/21/19 13:20> Date of Encounter: 05/21/19 - Discharge Diagnosis (1) Incarcerated umbilical hernia Status: Acute General Surgery Exam Initial Vital Signs Temp Pulse Resp BP Pulse Ox 98.3 F 73 18 141/105 96 05/19/19 16:14 05/19/19 16:14 05/19/19 16:14 05/19/19 16:14 05/19/19 16:14 - Hospital Course Hospital course: Ms. Muñoz is a 28 year old female - Time Spent with Patient Total time spent providing and/or coordinating discharge services: Date of admission: 05/19/19 21:49 Primary care physician: Monico Guzmán CNP Consults: 05/19/19 23:35 Consult to Nutrition [CONS] Routine Comment: Consulting Provider: NUTRITION Reason for Dietary Consult: MST Score Labs on day of discharge: Labs from last 24 hours 05/20/19 10:58 POC Glucose 96 - Impressions ITS Impressions Abdomen/Pelvis CT 05/19/19 17:59 IMPRESSION: 1. Ventral hernia containing transverse colon however no evidence of bowel obstruction or strangulation. 2. Well-visualized appendix which appears normal. 3. Diffuse fatty infiltration of the liver but no focal disease. Status post cholecystectomy. D/ / 05/19/2019 18:05:29 Faith Novak MD / jaxson Interpreting Provider: Faith Novak MD - Attending Attestation I examined this patient and my medical decision-making was reviewed with the [employer]. I agree with the documented findings, disposition and treatment plan as described to the extent set forth below. POD# 1 Robotic VH repair. Pt without complaint. Pain controlled. Fauzia reg diet. Condition is satisfactory for DC home. F/U 2 weeks.
== END 2019-05-21 13:23 | disposition home or self-care (01) ==
LOC: EMEROOARM 16:12 → 3ANU 16:12
PROVIDERS: ADMIT Surgery; ATTEND Surgery